=== PATIENT | male | born 1995 | race Caucasian/White ===

== ENCOUNTER 2017-12-23 09:07 | Inpatient (IN) | payer OTHER ==
[2017-12-23 09:28] VITALS: BMI 21.4
--- NOTE | 2017-12-23 09:55 | HP ---
COWS - Scale Resting Pulse: 0= [place] 80 or Below Sweatin= Chills/Flushing Restless Observation: 3= Extraneous Movement Pupil Size: 1= Pupils >than Normal Bone or Joint Aches: 2= Severe Diffuse Aches Runny Nose/ Eye Tearin= Nasal Congestion GI Upset > 30mins: 2= Nausea/Diarrhea Tremor Observation: 2= Slight Tremor Visible Yawning Observation: 1= 1-2x During Session Anxiety or Irritability: 2=Irritable/Anxious Goose Flesh Skin: 0=Smooth Skin COWS Score: 15 CIWA Score - CIWA Score Nausea/Vomitin Muscle Tremors: 2 Anxiety: 2 Agitation: 2 Paroxysmal Sweats: 1-Minimal Palms Moist Orientation: 0-Oriented Tacttile Disturbances: 1-Very Mild Itch/Numbness Auditory Disturbances: 1-Very Mild Visual Disturbances: 0-None Headache: 2-Mild CIWA-Ar Total Score: 13 Admission ROS BHS - HPI Chief Complaint: i need help to stop using heroin and xanax,cocaine and marijuana Allergies/Adverse Reactions: Allergies Allergy/AdvReac Type Severity Reaction Status Date / Time No Known Allergies Allergy Verified 12/23/17 09:42 History of Present Illness: this 22 years old male with heroin and xanax,cocaine and marijuana dependence, seeking detox,withdrawal symptom,last treatment 11/11/17 to 11/16/17 [facility] multiple admissions in the past nicotine dependence weight loss longest period of sobriety 3 months seizure last 2017 withdrawal seizure Exam Limitations: No Limitations - Ebola screening Have you traveled outside of the country in the last 21 days: No (N) Have you had contact with anyone from an Ebola affected area: No Have you been sick,other than usual withdrawal symptoms: No Do you have a fever: No - Review of Systems Constitutional: Chills, Loss of Appetite, Malaise, Night Sweats, Changes in sleep, Weakness, Unintentional Wgt. Loss EENT: reports: Tearing, Nose Congestion Respiratory: reports: No Symptoms reported Cardiac: reports: No Symptoms Reported GI: reports: Diarrhea, Nausea, Vomiting, Abdominal cramping : reports: No Symptoms Reported Musculoskeletal: reports: Back Pain, Joint Pain, Muscle Pain, Other (left acl repair in 2011) Integumentary: reports: Dryness Neuro: reports: Headache, Tremors Endocrine: reports: No Symptoms Reported Hematology: reports: No Symptoms Reported Psychiatric: reports: No Sypmtoms Reported, Judgement Intact, Mood/Affect Appropiate, Orientated x3 Patient History - Patient Medical History Hx Anemia: No Hx Asthma: No Hx Cardiac Disorders: No Hx Hypertension: No Hx Hypercholesterolemia: No Hx Seizures: Yes (LAST IN 2017 DUE TO XANAX WITHDRAWAL SX) Hx Diabetes: No Hx Gastrointestinal Disorders: No Hx Genitourinary Disorders: No Hx Sexually Transmitted Disorders: No Hx Renal Disease (ESRD): No Hx Thyroid Disease: No Hx Human Immunodeficiency Virus (HIV): No (NEGATIVE HX) Hx Hepatitis C: No Hx Depression: No Hx Suicide Attempt: No (DENIES) Hx Bipolar Disorder: No Hx Schizophrenia: No - Patient Surgical History Past Surgical History: Yes Hx Neurologic Surgery: No Hx Cataract Extraction: No Hx Cardiac Surgery: No Hx Lung Surgery: No Hx Breast Surgery: No Hx Breast Biopsy: No Hx Abdominal Surgery: No Hx Orthopedic Surgery: Yes (LEFT ACL TEAR REPAIRED IN 2010) Anesthesia Reaction: No - PPD History Previous Implant?: Yes Documented Results: Negative w/proof Implanted On Prior [facility] Admission?: Yes Date: 11/13/17 Results: 0 mm PPD to be Administered?: No - Smoking Cessation Smoking history: Current every day smoker Have you smoked in the past 12 months: Yes Aproximately how many cigarettes per day: 10 Hx Chewing Tobacco Use: No Initiated information on smoking cessation: Yes 'Breaking Loose' booklet given: 12/23/17 - Substance & Tx. History Hx Alcohol Use: No Hx Substance Use: Yes Substance Use Type: Cocaine, Heroin, Marijuana, Tranquilizers - Substances Abused Heroin Route: Injection Frequency: Daily Amount used: 5-10 BAGS Age of first use: 19 Date of Last Use: 12/23/17 Alprazolam (Xanax) Route: Oral Frequency: Daily Amount used: 4-6MG DAILY Age of first use: 15 Date of Last Use: 12/20/17 Family Disease History - Family Disease History Family Disease History: Diabetes: Grandparent, Other: Father (DRUG ADDICTION) Admission Physical Exam BHS - Vital Signs Vital Signs: Vital Signs - 24 hr 12/23/17 09:26 Temperature 97 F L Pulse Rate 69 Respiratory 18 Rate Blood Pressure 109/65 - Physical General Appearance: Yes: Moderate Distress, Tremorous, Irritable, Sweating, Anxious HEENTM: Yes: Normal ENT Inspection, JOSE, Pharynx Normal Respiratory: Yes: Lungs Clear, Normal Breath Sounds, No Respiratory Distress Neck: Yes: Within Normal Limits, Supple, Trachea in good position Breast: Yes: Within Normal Limits Cardiology: Yes: Within Normal Limits, Regular Rhythm, Regular Rate, S1, S2 Abdominal: Yes: Within Normal Limits, Normal Bowel Sounds, Non Tender, Soft Genitourinary: Yes: Within Normal Limits Back: Yes: Within Normal Limits, Normal Inspection, Muscle Spasm Musculoskeletal: Yes: Back pain, Joint Stiffness, Muscle Pain, Other (scar lef knee,post acl repair) Extremities: Yes: Tremors Neurological: Yes: 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 NML intact, Fully Oriented, Alert, Motor Strength 5/5 Integumentary: Yes: Dry Lymphatic: Yes: Within Normal Limits - Diagnostic (1) Opioid dependence with withdrawal Current Visit: Yes Status: Acute (2) Sedative, hypnotic or anxiolytic dependence with withdrawal, uncomplicated Current Visit: Yes Status: Acute (3) Cannabis dependence, uncomplicated Current Visit: No Status: Acute (4) Cocaine dependence, uncomplicated Current Visit: Yes Status: Acute (5) IVDU (intravenous drug user) Current Visit: Yes Status: Acute (6) Drug withdrawal seizure Current Visit: No Status: Chronic Qualifiers: Complication of substance-induced condition: with unspecified complication Qualified Code(s): F19.239 - Other psychoactive substance dependence with withdrawal, unspecified; R56.9 - Unspecified convulsions (7) Weight loss Current Visit: Yes Status: Acute (8) Nicotine dependence Current Visit: Yes Status: Acute Qualifiers: Nicotine product type: cigarettes Cleared for Admission [facility] - Detox or Rehab [facility] Level of Care: Medically Managed Detox Regimen/Protocol: Methadone [facility] Breath Alcohol Content Breath Alcohol Content: 0 Urine Drug Screen - Results Drug Screen Negative: No Urine Drug Screen Results: THC-Marijuana, STACEY-Cocaine, OPI-Opiates, FEN-Fentanyl
[2017-12-23] MEDS ORDERED: MAG HYDROX/AL HYDROX/SIMETH 30 ML UNIT-DOSE CUP PO PRN (10:04)
[2017-12-23] MEDS ORDERED: MENTHOL/PHENOL 1 EACH UD MM PRN (10:04)
[2017-12-23] MEDS ORDERED: MAGNESIUM CITRATE 300 ML BOTTLE PO PRN (10:04)
[2017-12-23] MEDS ORDERED: P-EPHED 60MG/TRIPROLIDI 2.5MG TABLET PO PRN (10:04)
[2017-12-23] MEDS ORDERED: IBUPROFEN 400 MG TABLET (FP) PO PRN (10:04)
[2017-12-23] MEDS ORDERED: guaiFENesin/D-METHORPHAN HB 10 ML UNIT-DOSE CUPS PO PRN (10:04)
[2017-12-23] MEDS ORDERED: LOPERAMIDE HCL 2 MG CAPSULE PO PRN (10:04)
[2017-12-23] MEDS ORDERED: ACETAMINOPHEN 325 MG TABLET (FP) PO PRN (10:04)
[2017-12-23] MEDS ORDERED: MAGNESIUM HYDROX 2400MG/30ML ORAL SUSPENSION 30 ML CUP PO PRN (10:04)
[2017-12-23] MEDS ORDERED: hydrOXYzine PAMOATE 25 MG CAPSULE (FP) PO PRN (10:04)
[2017-12-23] MEDS ORDERED: METHADONE HCL 10 MG TABLET (FOR DETOX USE ONLY) PO ONE ×2 (10:15→23:00)
--- NOTE | 2017-12-23 11:15 | EKG ---
Test Reason : Blood Pressure : / mmHG Vent. Rate : 077 BPM Atrial Rate : 077 BPM P-R Int : 150 ms QRS Dur : 102 ms QT Int : 370 ms P-R-T Axes : -17 061 061 degrees QTc Int : 418 ms NORMAL SINUS RHYTHM NORMAL ECG WHEN COMPARED WITH ECG OF 11-NOV-2017 19:17, VENT. RATE HAS INCREASED BY 31 BPM Confirmed by GISELE DOSS MD ([id number]) on 12/23/2017 11:15:15 AM Referred By: Confirmed By:GISELE DOSS MD
[2017-12-23] MEDS: diazePAM 5 MG TABLET PO PRN ×3 (11:46→22:21)
[2017-12-23] MEDS: NICOTINE 21 MG/24 HOURS TOPICAL PATCH TD SCH (11:47)
[2017-12-23 14:52] LABS: URINE APPEARANCE CLEAR; URINE BILIRUBIN NEGATIVE (<2.0 mg/dL); URINE COLOR YELLOW; URINE GLUCOSE (UA) NEGATIVE (NEGATIVE); URINE KETONE NEGATIVE (NEGATIVE); URINE LEUK ESTERASE NEGATIVE (NEGATIVE); URINE NITRITE NEGATIVE (NEGATIVE); URINE PROTEIN NEGATIVE (NEGATIVE)
[2017-12-23] MEDS ORDERED: MELATONIN 5 MG TABLETS PO PRN (22:00)
[2017-12-23] MEDS: THIAMINE HCL 100 MG TABLET (FP) PO SCH (22:18)
[2017-12-23] MEDS: cloNIDine HCL 0.1 MG TABLET PO SCH (22:19)
--- NOTE | 2017-12-24 09:41 | PN ---
S CIWA - CIWA Score Nausea/Vomitin-No Nausea/No Vomiting Muscle Tremors: 2 Anxiety: 3 Agitation: 3 Paroxysmal Sweats: 3 Orientation: 0-Oriented Tacttile Disturbances: 0-None Auditory Disturbances: 0-None Visual Disturbances: 1-Very Mild Sensitivity Headache: 0-None Present CIWA-Ar Total Score: 12 BHS COWS - Scale Resting Pulse: 0= [place] 80 or Below Sweatin=Flushed/Facial Moisture Restless Observation: 1= Difficult to Sit Still Pupil Size: 1= Pupils >than Normal Bone or Joint Aches: 1= Mild Discomfort Runny Nose/ Eye Tearin= Runny Nose/Eyes GI Upset > 30mins: 0= None Tremor Observation of Outstretched Hands: 1= Tremor [place], Not Seen Yawning Observation: 2= >3x During Session Anxiety or Irritability: 2=Irritable/Anxious Goose Flesh Skin: 0=Smooth Skin COWS Score: 12 S Progress Note (SOAP) Subjective: anxious, body aches, chills and sweats Objective: 12/24/17 09:39 Vital Signs Temperature 97.7 F 12/24/17 09:06 Pulse Rate 59 L 12/24/17 09:06 Respiratory Rate 16 12/24/17 09:06 Blood Pressure 145/78 12/24/17 09:06 O2 Sat by Pulse Oximetry (%) Laboratory Last Values Urine Color Yellow 12/23/17 12:15 Urine Appearance Clear 12/23/17 12:15 Urine pH 5.0 (5.0-8.0) 12/23/17 12:15 Ur Specific [place] 1.024 (1.001-1.035) 12/23/17 12:15 Urine Protein Negative (NEGATIVE) 12/23/17 12:15 Urine Glucose (UA) Negative (NEGATIVE) 12/23/17 12:15 Urine Ketones Negative (NEGATIVE) 12/23/17 12:15 Urine Blood Negative (NEGATIVE) 12/23/17 12:15 Urine Nitrite Negative (NEGATIVE) 12/23/17 12:15 Urine Bilirubin Negative (<2.0 mg/dL) 12/23/17 12:15 Urine Urobilinogen 2.0 mg/dL (0.2-1.0) 12/23/17 12:15 Ur Leukocyte Esterase Negative (NEGATIVE) 12/23/17 12:15 additional labs pending Assessment: 12/24/17 09:41 Aox3 no distress no adventitious breath sounds full ROM ambulating in the unit withdrawal sx Plan: increase PO fluids continue detox continue to monitor
[2017-12-24] MEDS ORDERED: METHADONE HCL 10 MG TABLET (FOR DETOX USE ONLY) PO ONE (10:00)
[2017-12-24] MEDS: cloNIDine HCL 0.1 MG TABLET PO SCH ×2 (10:14→22:05)
[2017-12-24] MEDS: diazePAM 5 MG TABLET PO PRN ×4 (10:15→23:01)
[2017-12-24] MEDS: PRENATAL VITAMINS W/ FOLIC ACID TABLET (FP) PO SCH (10:15)
[2017-12-24] MEDS: NICOTINE 21 MG/24 HOURS TOPICAL PATCH TD SCH (10:15)
[2017-12-24 11:28] LABS: HEMATOCRIT 40.3 % (35.4-49); HEMOGLOBIN 13.3 GM/dL (11.7-16.9); MCH 28.7 pg (25.7-33.7); MEAN CELL VOLUME 86.9 fl (80-96); MEAN PLT VOLUME 8.9 fl (7.5-11.1); PLATELET COUNT 174 K/MM3 (134-434); RBC 4.63 M/mm3 (4.00-5.60); RDW 14.3 % (11.9-15.9); WHITE BLOOD COUNT 7.1 K/mm3 (4.0-10.0)
[2017-12-24 11:41] LABS: ALBUMIN 3.4 g/dl (3.4-5.0); ALK PHOS 73 U/L (45-117); ANION GAP 4 MMOL/L (8-16); BILIRUBIN,TOTAL 0.3 mg/dL (0.2-1); BLOOD UREA NITROGEN 12 mg/dL (7-18); CALCIUM 9.2 mg/dL (8.5-10.1); CHLORIDE 104 mmol/L (98-107); CO2 30 mmol/L (21-32); CREATININE 1.1 mg/dL (0.55-1.3); GLUCOSE,RANDOM 87 mg/dL (74-106); POTASSIUM 4.4 mmol/L (3.5-5.1); SGOT/AST 17 U/L (15-37); SGPT/ALT 24 U/L (13-61); SODIUM 138 mmol/L (136-145)
[2017-12-24] MEDS: THIAMINE HCL 100 MG TABLET (FP) PO SCH (22:05)
[2017-12-24] MEDS: CYCLOBENZAPRINE HCL 10 MG TABLET (FP) PO PRN (22:05)
[2017-12-25] MEDS: CYCLOBENZAPRINE HCL 10 MG TABLET (FP) PO PRN (09:21)
[2017-12-25] MEDS: diazePAM 5 MG TABLET PO PRN ×2 (09:21→13:06)
[2017-12-25] MEDS ORDERED: METHADONE HCL 5 MG TABLET (FOR DETOX USE ONLY) PO ONE (10:00)
[2017-12-25] MEDS: NICOTINE 21 MG/24 HOURS TOPICAL PATCH TD SCH (10:09)
[2017-12-25] MEDS: PRENATAL VITAMINS W/ FOLIC ACID TABLET (FP) PO SCH (10:09)
[2017-12-25] MEDS: cloNIDine HCL 0.1 MG TABLET PO SCH (10:09)
[2017-12-25 14:09] VITALS: BP 106/66; PULSE 94; TEMP 98.1
--- NOTE | 2017-12-25 17:11 | PN ---
[facility] CIWA - CIWA Score Nausea/Vomitin-Mild Nausea/No Vomiting Muscle Tremors: 3 Anxiety: 3 Agitation: 3 Paroxysmal Sweats: 1-Minimal Palms Moist Orientation: 0-Oriented Tacttile Disturbances: 0-None Auditory Disturbances: 0-None Visual Disturbances: 0-None Headache: 0-None Present CIWA-Ar Total Score: 11 S COWS - Scale Resting Pulse: 0= [place] 80 or Below Sweatin= Chills/Flushing Restless Observation: 1= Difficult to Sit Still Pupil Size: 0= Normal to Room Light Bone or Joint Aches: 2= Severe Diffuse Aches Runny Nose/ Eye Tearin= Nasal Congestion GI Upset > 30mins: 2= Nausea/Diarrhea Tremor Observation of Outstretched Hands: 1= Tremor [place], Not Seen Yawning Observation: 1= 1-2x During Session Anxiety or Irritability: 2=Irritable/Anxious Goose Flesh Skin: 0=Smooth Skin COWS Score: 11 [facility] Progress Note (SOAP) Subjective: body aches trouble sleep at night tremor gi distress Objective: 12/25/17 17:10 Vital Signs Temperature 98.1 F 12/25/17 14:09 Pulse Rate 94 H 12/25/17 14:09 Respiratory Rate 18 12/25/17 14:09 Blood Pressure 106/66 12/25/17 14:09 O2 Sat by Pulse Oximetry (%) Laboratory Last Values WBC 7.1 K/mm3 (4.0-10.0) 12/24/17 07:40 RBC 4.63 M/mm3 (4.00-5.60) 12/24/17 07:40 Hgb 13.3 GM/dL (11.7-16.9) 12/24/17 07:40 Hct 40.3 % (35.4-49) 12/24/17 07:40 MCV 86.9 fl (80-96) 12/24/17 07:40 MCH 28.7 pg (25.7-33.7) 12/24/17 07:40 MCHC 33.0 g/dl (32.0-35.9) 12/24/17 07:40 RDW 14.3 % (11.9-15.9) 12/24/17 07:40 Plt Count 174 K/MM3 (134-434) 12/24/17 07:40 MPV 8.9 fl (7.5-11.1) 12/24/17 07:40 Sodium 138 mmol/L (136-145) 12/24/17 07:40 Potassium 4.4 mmol/L (3.5-5.1) 12/24/17 07:40 Chloride 104 mmol/L (98-107) 12/24/17 07:40 Carbon Dioxide 30 mmol/L (21-32) 12/24/17 07:40 Anion Gap 4 MMOL/L (8-16) L 12/24/17 07:40 BUN 12 mg/dL (7-18) 12/24/17 07:40 Creatinine 1.1 mg/dL (0.55-1.3) 12/24/17 07:40 Creat Clearance w eGFR > 60 (>60) 12/24/17 07:40 Random Glucose 87 mg/dL (74-106) 12/24/17 07:40 Calcium 9.2 mg/dL (8.5-10.1) 12/24/17 07:40 Total Bilirubin 0.3 mg/dL (0.2-1) 12/24/17 07:40 AST 17 U/L (15-37) 12/24/17 07:40 ALT 24 U/L (13-61) 12/24/17 07:40 Alkaline Phosphatase 73 U/L (45-117) 12/24/17 07:40 Total Protein 7.0 g/dl (6.4-8.2) 12/24/17 07:40 Albumin 3.4 g/dl (3.4-5.0) 12/24/17 07:40 Urine Color Yellow 12/23/17 12:15 Urine Appearance Clear 12/23/17 12:15 Urine pH 5.0 (5.0-8.0) 12/23/17 12:15 Ur Specific [place] 1.024 (1.001-1.035) 12/23/17 12:15 Urine Protein Negative (NEGATIVE) 12/23/17 12:15 Urine Glucose (UA) Negative (NEGATIVE) 12/23/17 12:15 Urine Ketones Negative (NEGATIVE) 12/23/17 12:15 Urine Blood Negative (NEGATIVE) 12/23/17 12:15 Urine Nitrite Negative (NEGATIVE) 12/23/17 12:15 Urine Bilirubin Negative (<2.0 mg/dL) 12/23/17 12:15 Urine Urobilinogen 2.0 mg/dL (0.2-1.0) 12/23/17 12:15 Ur Leukocyte Esterase Negative (NEGATIVE) 12/23/17 12:15 RPR Titer Nonreactive (NONREACTIVE) 12/24/17 07:40 lab noted Assessment: 12/25/17 17:10 withdrawal sx Plan: continue detox
--- NOTE | 2017-12-25 17:48 | PN ---
Kaushik Progress Note Note: patient did not want to complete treatment,singed release ama,all attempts to convince patient to stay with no avail,signed release ama,risks of withdrawal and relapsing explained,advise to go to er if any problem
--- NOTE | 2017-12-25 17:50 | DS ---
[facility] Detox Discharge Summary Admission Date: 12/23/17 Discharge Date: 12/25/17 - History Present History: Cannabis Dependence, Cocaine Dependence, Opioid Dependence, Sedative Dependence Additional Comments: patient left ama - Physical Exam Results Vital Signs: Vital Signs Temperature 98.1 F 12/25/17 14:09 Pulse Rate 94 H 12/25/17 14:09 Respiratory Rate 18 12/25/17 14:09 Blood Pressure 106/66 12/25/17 14:09 O2 Sat by Pulse Oximetry (%) Pertinent Admission Physical Exam Findings: withdrawal signs and symptom Laboratory Last Values WBC 7.1 K/mm3 (4.0-10.0) 12/24/17 07:40 RBC 4.63 M/mm3 (4.00-5.60) 12/24/17 07:40 Hgb 13.3 GM/dL (11.7-16.9) 12/24/17 07:40 Hct 40.3 % (35.4-49) 12/24/17 07:40 MCV 86.9 fl (80-96) 12/24/17 07:40 MCH 28.7 pg (25.7-33.7) 12/24/17 07:40 MCHC 33.0 g/dl (32.0-35.9) 12/24/17 07:40 RDW 14.3 % (11.9-15.9) 12/24/17 07:40 Plt Count 174 K/MM3 (134-434) 12/24/17 07:40 MPV 8.9 fl (7.5-11.1) 12/24/17 07:40 Sodium 138 mmol/L (136-145) 12/24/17 07:40 Potassium 4.4 mmol/L (3.5-5.1) 12/24/17 07:40 Chloride 104 mmol/L (98-107) 12/24/17 07:40 Carbon Dioxide 30 mmol/L (21-32) 12/24/17 07:40 Anion Gap 4 MMOL/L (8-16) L 12/24/17 07:40 BUN 12 mg/dL (7-18) 12/24/17 07:40 Creatinine 1.1 mg/dL (0.55-1.3) 12/24/17 07:40 Creat Clearance w eGFR > 60 (>60) 12/24/17 07:40 Random Glucose 87 mg/dL (74-106) 12/24/17 07:40 Calcium 9.2 mg/dL (8.5-10.1) 12/24/17 07:40 Total Bilirubin 0.3 mg/dL (0.2-1) 12/24/17 07:40 AST 17 U/L (15-37) 12/24/17 07:40 ALT 24 U/L (13-61) 12/24/17 07:40 Alkaline Phosphatase 73 U/L (45-117) 12/24/17 07:40 Total Protein 7.0 g/dl (6.4-8.2) 12/24/17 07:40 Albumin 3.4 g/dl (3.4-5.0) 12/24/17 07:40 Urine Color Yellow 12/23/17 12:15 Urine Appearance Clear 12/23/17 12:15 Urine pH 5.0 (5.0-8.0) 12/23/17 12:15 Ur Specific [place] 1.024 (1.001-1.035) 12/23/17 12:15 Urine Protein Negative (NEGATIVE) 12/23/17 12:15 Urine Glucose (UA) Negative (NEGATIVE) 12/23/17 12:15 Urine Ketones Negative (NEGATIVE) 12/23/17 12:15 Urine Blood Negative (NEGATIVE) 12/23/17 12:15 Urine Nitrite Negative (NEGATIVE) 12/23/17 12:15 Urine Bilirubin Negative (<2.0 mg/dL) 12/23/17 12:15 Urine Urobilinogen 2.0 mg/dL (0.2-1.0) 12/23/17 12:15 Ur Leukocyte Esterase Negative (NEGATIVE) 12/23/17 12:15 RPR Titer Nonreactive (NONREACTIVE) 12/24/17 07:40 - Medication Discharge Medications: Ambulatory Orders NK [No Known Home Medication] 11/11/17 - Diagnosis (1) Opioid dependence with withdrawal Current Visit: Yes Status: Acute (2) Sedative, hypnotic or anxiolytic dependence with withdrawal, uncomplicated Current Visit: Yes Status: Acute (3) Cannabis dependence, uncomplicated Current Visit: No Status: Acute (4) Cocaine dependence, uncomplicated Current Visit: Yes Status: Acute (5) IVDU (intravenous drug user) Current Visit: Yes Status: Acute (6) Drug withdrawal seizure Current Visit: No Status: Chronic Qualifiers: Complication of substance-induced condition: with unspecified complication Qualified Code(s): F19.239 - Other psychoactive substance dependence with withdrawal, unspecified; R56.9 - Unspecified convulsions (7) Weight loss Current Visit: Yes Status: Acute (8) Nicotine dependence Current Visit: Yes Status: Acute Qualifiers: Nicotine product type: cigarettes - AMA Did Patient Leave Against Medical Advice: Yes
[2017-12-26] MEDS ORDERED: METHADONE HCL 5 MG TABLET (FOR DETOX USE ONLY) PO ONE (10:00)
[2017-12-27] MEDS ORDERED: METHADONE HCL 10 MG TABLET (FOR DETOX USE ONLY) PO ONE (10:00)
[2017-12-28] MEDS ORDERED: METHADONE HCL 5 MG TABLET (FOR DETOX USE ONLY) PO ONE (06:00)
== END 2017-12-25 18:00 | disposition left against medical advice (07) | DRG 770 ==
LOC: YASAS 09:07 → Y6N 10:11
PROC: HZ2ZZZZ Detoxification Services for Substance Abuse Treatment (ICD-10-PCS; principal; 2017-12-23)
DX: F11.23 Opioid dependence with withdrawal (principal); F13.230 Sedative, hypnotic or anxiolytic dependence with withdrawal, uncomplicated; F14.20 Cocaine dependence, uncomplicated; F12.20 Cannabis dependence, uncomplicated; F17.210 Nicotine dependence, cigarettes, uncomplicated; R63.4 Abnormal weight loss; Z68.21 Body mass index [BMI] 21.0-21.9, adult; Z86.69 Personal history of other diseases of the nervous system and sense organs
CPT/HCPCS: 36415; 80053; 81003; 85027; 86593; 93005; 93010; J0735

== ENCOUNTER 2018-11-02 16:10 | Inpatient (IN) | payer OTHER ==
[2018-11-02 18:56] VITALS: BMI 21.1
--- NOTE | 2018-11-02 20:13 | HP ---
COWS - Scale Resting Pulse: 0= [place] 80 or Below Sweatin= Chills/Flushing Restless Observation: 1= Difficult to Sit Still Pupil Size: 0= Normal to Room Light Bone or Joint Aches: 1= Mild Discomfort Runny Nose/ Eye Tearin= Runny Nose/Eyes GI Upset > 30mins: 2= Nausea/Diarrhea Tremor Observation: 2= Slight Tremor Visible Yawning Observation: 2= >3x During Session Anxiety or Irritability: 1=Feels Anxious/Irritable Goose Flesh Skin: 3=Piloerection COWS Score: 15 CIWA Score - Admission Criteria [facility] Guidelines: Admission for Medically Managed Detox: Requires at least one of the followin. CIWA greater than 12 2. Seizures within the past 24 hours 3. Delirium tremens within the past 24 hours 4. Hallucinations within the past 24 hours 5. Acute intervention needed for co occurring medical disorder 6. Acute intervention needed for co occurring psychiatric disorder 7. Severe withdrawal that cannot be handled at a lower level of care (continued vomiting, continued diarrhea, abnormal vital signs) requiring intravenous medication and/or fluids 8. Admission ROS [facility] Chief Complaint: opioid withdrawal sx Allergies/Adverse Reactions: Allergies Allergy/AdvReac Type Severity Reaction Status Date / Time No Known Allergies Allergy Verified 11/02/18 18:45 History of Present Illness: Patient is 23 nyo old male with hx of heroin dependence intranasal and occasional intravenous use, with last IV use this morning, is here seeking detox , last detox [facility] November 2018. Longest period of sobriety 3 months, reports overdose x 5 with last episode March 2018. Denies medical or psychiatric hx. Denies SI/HI. Exam Limitations: No Limitations - Ebola screening Have you traveled outside of the country in the last 21 days: No (N) Have you had contact with anyone from an Ebola affected area: No Do you have a fever: No - Review of Systems Constitutional: Chills, Loss of Appetite, Unintentional Wgt. Loss EENT: reports: Nose Congestion Respiratory: reports: No Symptoms reported Cardiac: reports: No Symptoms Reported GI: reports: Nausea, Poor Appetite, Poor Fluid Intake : reports: No Symptoms Reported Musculoskeletal: reports: Joint Pain Integumentary: reports: No Symptoms Reported Neuro: reports: No Symptoms reported Endocrine: reports: No Symptoms Reported Hematology: reports: No Symptoms Reported Psychiatric: reports: Orientated x3, Anxious Other Systems: Reviewed and Negative Patient History - Patient Medical History Hx Anemia: No Hx Asthma: No Hx Chronic Obstructive Pulmonary Disease (COPD): No Hx Cardiac Disorders: No Hx Hypertension: No Hx Hypercholesterolemia: No Hx Seizures: Yes (LAST IN 2016 DUE TO XANAX WITHDRAWAL SX) Hx Diabetes: No Hx Gastrointestinal Disorders: No Hx Genitourinary Disorders: No Hx Sexually Transmitted Disorders: No Hx Renal Disease (ESRD): No Hx Thyroid Disease: No Hx Human Immunodeficiency Virus (HIV): No (NEGATIVE HX) Hx Hepatitis C: No Hx Depression: No Hx Suicide Attempt: No (DENIES) Hx Bipolar Disorder: No Hx Schizophrenia: No - Patient Surgical History Past Surgical History: Yes Hx Neurologic Surgery: No Hx Cataract Extraction: No Hx Cardiac Surgery: No Hx Lung Surgery: No Hx Breast Surgery: No Hx Breast Biopsy: No Hx Abdominal Surgery: No Hx Appendectomy: No Hx Cholecystectomy: No Hx Genitourinary Surgery: No Hx Section: No Hx Orthopedic Surgery: Yes (LEFT ACL TEAR REPAIRED IN 2010) Anesthesia Reaction: No - PPD History Documented Results: Negative w/proof Date: 11/13/17 Results: 0 mm PPD to be Administered?: Yes - Smoking Cessation Smoking history: Current every day smoker Have you smoked in the past 12 months: Yes Aproximately how many cigarettes per day: 10 Hx Chewing Tobacco Use: No Initiated information on smoking cessation: Yes 'Breaking Loose' booklet given: 11/02/18 - Substance & Tx. History Hx Alcohol Use: No Hx Substance Use: Yes Substance Use Type: Heroin, Opiates, Tranquilizers Hx Substance Use Treatment: Yes ([facility] November 2017) - Substances abused Alprazolam (Xanax) Substance route: Oral Frequency: Daily Amount used: 6 mg Age of first use: 19 Date of last use: 10/29/18 Heroin Substance route: Inhalation Frequency: Daily Amount used: 1 - 2 bundles Age of first use: 20 Date of last use: 11/02/18 Family Disease History - Family Disease History Family Disease History: Diabetes: Grandparent, Other: Father (DRUG ADDICTION) Admission Physical Exam BHS - Vital Signs Vital Signs: Vital Signs - 24 hr 11/02/18 18:45 Temperature 98.0 F Pulse Rate 62 Respiratory 16 Rate Blood Pressure 141/81 - Physical General Appearance: Yes: Appropriately Dressed, Mild Distress, Thin, Tremorous, Sweating HEENTM: Yes: EOMI, Hearing grossly Normal, Normal ENT Inspection, Normocephalic , Normal Voice, JOSE, Pharynx Normal, Tm's normal, Nasal Congestion Respiratory: Yes: Chest Non-Tender, Lungs Clear, Normal Breath Sounds, No Respiratory Distress, No Accessory Muscle Use Neck: Yes: Within Normal Limits Breast: Yes: Breast Exam Deferred Cardiology: Yes: Regular Rhythm, Regular Rate Abdominal: Yes: Normal Bowel Sounds, Non Tender, Flat, Soft Genitourinary: Yes: Within Normal Limits Back: Yes: Normal Inspection Musculoskeletal: Yes: full range of Motion, Gait Steady, Pelvis Stable, Back pain Extremities: Yes: Normal Capillary Refill, Normal Inspection, Normal Range of Motion, Non-Tender 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 intact, Fully Oriented, Alert, Motor Strength 5/5, Normal Response, Depressed Affect Integumentary: Yes: Normal Color, Warm, Diaphoresis Lymphatic: Yes: Within Normal Limits - Diagnostic (1) Nicotine dependence Current Visit: Yes Status: Acute Qualifiers: Nicotine product type: cigarettes (2) Opioid dependence with withdrawal Current Visit: Yes Status: Acute (3) Weight loss Current Visit: Yes Status: Acute Cleared for Admission S - Detox or Rehab [facility] Level of Care: Medically Managed Detox Regimen/Protocol: Methadone Breathalyzer - Breathalyzer Breathalyzer: 0 Urine Drug Screen - Test Device Lot number: [id number] Expiration date: 07/25/18 - Control Is test valid?: Yes - Results Drug screen NEGATIVE: No Urine drug screen results: THC-Marijuana, FEN-Fentanyl Inpatient Rehab Admission - Rehab Decision to Admit Inpatient rehab admission?: No - Initial Determination Are CD services needed?: No Free of communicable disease: No Not in need of hospitalization: No - Rehab Admission Criteria Previous failed treatment: No Poor recovery environment: No Comorbidities: No Lacks judgement: No Patient is meeting Inpatient Rehab admission criteria:: No
[2018-11-02] MEDS ORDERED: BISMUTH SUBSALICYLATE 524 MG/30 ML UD PO PRN (20:14)
[2018-11-02] MEDS ORDERED: cloNIDine HCL 0.1 MG TABLET PO PRN (20:14)
[2018-11-02] MEDS ORDERED: METHOCARBAMOL 500 MG TABLET PO PRN (20:14)
[2018-11-02] MEDS ORDERED: ACETAMINOPHEN 325 MG TABLET (FP) PO PRN ×2 (20:14)
[2018-11-02] MEDS ORDERED: MAGNESIUM HYDROX 2400MG/30ML ORAL SUSPENSION 30 ML CUP PO PRN (20:14)
[2018-11-02] MEDS ORDERED: METHADONE HCL 10 MG TABLET (FOR DETOX USE ONLY) PO ONE (20:14)
[2018-11-02] MEDS ORDERED: NICOTINE POLACRILEX 2 MG GUM BUC PRN (20:14)
[2018-11-02] MEDS ORDERED: IBUPROFEN 400 MG TABLET (FP) PO PRN (20:14)
[2018-11-02] MEDS ORDERED: MAGNESIUM CITRATE 300 ML BOTTLE PO PRN (20:14)
[2018-11-02] MEDS ORDERED: MENTHOL/PHENOL 1 EACH UD MM PRN (20:14)
[2018-11-02] MEDS ORDERED: MAG HYDROX/AL HYDROX/SIMETH 30 ML UNIT-DOSE CUP PO PRN (20:14)
[2018-11-02] MEDS ORDERED: METHADONE HCL 5 MG TABLET (FOR DETOX USE ONLY) PO ONE (20:46)
[2018-11-02] MEDS: THIAMINE HCL 100 MG TABLET (FP) PO SCH (21:41)
[2018-11-02] MEDS: diazePAM 5 MG TABLET PO PRN (21:41)
[2018-11-02] MEDS ORDERED: MELATONIN 5 MG TABLETS PO PRN (22:00)
[2018-11-03] MEDS ORDERED: METHADONE HCL 5 MG TABLET (FOR DETOX USE ONLY) ONE (08:45)
[2018-11-03] MEDS ORDERED: METHADONE HCL 10 MG TABLET (FOR DETOX USE ONLY) ONE (08:46)
[2018-11-03] MEDS: NICOTINE 14 MG/24 HOURS TOPICAL PATCH TD SCH (09:56)
[2018-11-03] MEDS: PRENATAL VITAMINS W/ FOLIC ACID TABLET (FP) PO SCH (09:56)
[2018-11-03] MEDS ORDERED: METHADONE (DETOX) 20 MG, METHADONE (DETOX) 5 MG PO ONE (10:00)
[2018-11-03] MEDS: diazePAM 5 MG TABLET PO PRN ×2 (10:00→15:45)
[2018-11-03 10:54] LABS: HEMATOCRIT 44.3 % (35.4-49); HEMOGLOBIN 15.1 GM/dL (11.7-16.9); MCH 30.7 pg (25.7-33.7); MEAN CELL VOLUME 90.3 fl (80-96); MEAN PLT VOLUME 10.9 fl (7.5-11.1); PLATELET COUNT 212 K/MM3 (134-434); RBC 4.91 M/mm3 (4.00-5.60); RDW 13.7 % (11.9-15.9); WHITE BLOOD COUNT 6.5 K/mm3 (4.0-10.0)
[2018-11-03 10:59] LABS: BILIRUBIN,TOTAL 0.4 mg/dL (0.2-1); CALCIUM 9.5 mg/dL (8.5-10.1); CREATININE 1.1 mg/dL (0.55-1.3); POTASSIUM 5.2 mmol/L (3.5-5.1); TOT PROT 7.3 g/dl (6.4-8.2)
--- NOTE | 2018-11-03 11:04 | PN ---
S CIWA - CIWA Score Nausea/Vomitin-No Nausea/No Vomiting Muscle Tremors: 3 Anxiety: 2 Agitation: 3 Paroxysmal Sweats: 2 Orientation: 0-Oriented Tacttile Disturbances: 0-None Auditory Disturbances: 0-None Visual Disturbances: 0-None Headache: 0-None Present CIWA-Ar Total Score: 10 S Progress Note (SOAP) Subjective: shakes sweats interrupted sleep body aches anxiety irritable Objective: 11/03/18 11:02 Vital Signs Temperature 98.8 F 11/03/18 10:06 Pulse Rate 52 L 11/03/18 10:06 Respiratory Rate 18 11/03/18 10:06 Blood Pressure 147/97 11/03/18 10:06 O2 Sat by Pulse Oximetry (%) Laboratory Tests 11/03/18 11/03/18 07:00 07:00 WBC 6.5 RBC 4.91 Hgb 15.1 Hct 44.3 MCV 90.3 MCH 30.7 MCHC 34.0 RDW 13.7 Plt Count 212 D MPV 10.9 D Sodium 141 Potassium 5.2 H Chloride 105 Carbon Dioxide 32 Anion Gap 3 L BUN 9.0 Creatinine 1.1 Est GFR (CKD-EPI)AfAm 108.32 Est GFR (CKD-EPI)NonAf 93.46 Random Glucose 90 Calcium 9.5 Total Bilirubin 0.4 AST 12 L ALT 15 Alkaline Phosphatase 70 Total Protein 7.3 Albumin 4.0 labs noted elevated potassium 5.2.. order repeat labs [id number] ambulating no acute distress Assessment: 11/03/18 11:03 withdrawal sx Plan: continue detox increase fluids repeat labs
--- NOTE | 2018-11-03 13:46 | EKG ---
Test Reason : Blood Pressure : / mmHG Vent. Rate : 044 BPM Atrial Rate : 044 BPM P-R Int : 162 ms QRS Dur : 088 ms QT Int : 426 ms P-R-T Axes : 054 049 056 degrees QTc Int : 364 ms MARKED SINUS BRADYCARDIA WHEN COMPARED WITH ECG OF 23-DEC-2017 10:29, VENT. RATE HAS DECREASED BY 33 BPM QT HAS SHORTENED Confirmed by XAVIER HINOJSOA MD ([id number]) on 11/03/2018 1:45:53 PM Referred By: Afshin Bautista Confirmed By:XAVIER HINOJOSA MD
[2018-11-03] MEDS: THIAMINE HCL 100 MG TABLET (FP) PO SCH (22:17)
[2018-11-04 06:47] VITALS: TEMP 97.2
[2018-11-04 09:31] VITALS: BP 118/60; PULSE 101
[2018-11-04] MEDS ORDERED: METHADONE HCL 10 MG TABLET (FOR DETOX USE ONLY) PO ONE (10:00)
[2018-11-04] MEDS: PRENATAL VITAMINS W/ FOLIC ACID TABLET (FP) PO SCH (10:30)
[2018-11-04] MEDS: NICOTINE 14 MG/24 HOURS TOPICAL PATCH TD SCH (10:30)
[2018-11-04] MEDS: diazePAM 5 MG TABLET PO PRN (10:33)
--- NOTE | 2018-11-04 12:54 | PN ---
[facility] Progress Note Note: pt arrived in withdrawals, pt c/o of withdrawals symptoms and aggressive symptomatic management attempted however pt in spite of extensive motivational chiseling regarding the risk of relapse, seizures, OD and or loss, pt chose to sign out AMA.
--- NOTE | 2018-11-04 13:49 | DS ---
[facility] Detox Discharge Summary Admission Date: 11/02/18 - History Present History: Alcohol Dependence, Opioid Dependence - Physical Exam Results Vital Signs: Vital Signs Temperature 97.2 F L 11/04/18 06:00 Pulse Rate 101 H 11/04/18 09:31 Respiratory Rate 18 11/04/18 09:31 Blood Pressure 118/60 11/04/18 09:31 O2 Sat by Pulse Oximetry (%) Pertinent Admission Physical Exam Findings: pt arrived in withdrawa Laboratory Tests 11/03/18 11/03/18 11/03/18 07:00 07:00 07:00 WBC 6.5 RBC 4.91 Hgb 15.1 Hct 44.3 MCV 90.3 MCH 30.7 MCHC 34.0 RDW 13.7 Plt Count 212 D MPV 10.9 D Sodium 141 Potassium 5.2 H Chloride 105 Carbon Dioxide 32 Anion Gap 3 L BUN 9.0 Creatinine 1.1 Est GFR (CKD-EPI)AfAm 108.32 Est GFR (CKD-EPI)NonAf 93.46 Random Glucose 90 Calcium 9.5 Total Bilirubin 0.4 AST 12 L ALT 15 Alkaline Phosphatase 70 Total Protein 7.3 Albumin 4.0 RPR Titer Nonreactive 11/04/18 08:00 WBC RBC Hgb Hct MCV MCH MCHC RDW Plt Count MPV Sodium Potassium 4.4 Chloride Carbon Dioxide Anion Gap BUN Creatinine Est GFR (CKD-EPI)AfAm Est GFR (CKD-EPI)NonAf Random Glucose Calcium Total Bilirubin AST ALT Alkaline Phosphatase Total Protein Albumin RPR Titer pt is restless, has not finished his detox and is insisting on leaving. Pt was advised of all the risk for leaving without completing his detox, pt understands pt signed AMA. - Treatment Hospital Course: Discharged Condition Good Patient has Accepted a Rehab Referral to: referral provided - Medication Discharge Medications: Ambulatory Orders NK [No Known Home Medication] 11/11/17 - Diagnosis (1) Alcohol abuse, episodic drinking behavior Status: Acute (2) Cannabis dependence, uncomplicated Status: Acute (3) Cocaine dependence, uncomplicated Status: Acute (4) IVDU (intravenous drug user) Status: Acute (5) Nicotine dependence Status: Acute Qualifiers: Nicotine product type: cigarettes (6) Opioid dependence with withdrawal Status: Acute (7) Sedative, hypnotic or anxiolytic dependence with withdrawal, uncomplicated Status: Acute (8) Weight loss Status: Acute (9) Drug withdrawal seizure Status: Chronic Qualifiers: Complication of substance-induced condition: with unspecified complication Qualified Code(s): F19.239 - Other psychoactive substance dependence with withdrawal, unspecified; R56.9 - Unspecified convulsions - AMA Did Patient Leave Against Medical Advice: Yes
[2018-11-05] MEDS ORDERED: METHADONE (DETOX) 10 MG, METHADONE (DETOX) 5 MG PO ONE (10:00)
[2018-11-06] MEDS ORDERED: METHADONE HCL 10 MG TABLET (FOR DETOX USE ONLY) PO ONE (10:00)
[2018-11-07] MEDS ORDERED: METHADONE HCL 5 MG TABLET (FOR DETOX USE ONLY) PO ONE (06:00)
== END 2018-11-04 13:13 | disposition left against medical advice (07) | DRG 770 ==
LOC: YASAS 16:10 → Y6N 21:03
PROVIDERS: ADMIT Surgery; ATTEND Surgery
PROC: HZ2ZZZZ Detoxification Services for Substance Abuse Treatment (ICD-10-PCS; principal; 2018-11-02)
DX: F11.23 Opioid dependence with withdrawal (principal); F13.230 Sedative, hypnotic or anxiolytic dependence with withdrawal, uncomplicated; F14.20 Cocaine dependence, uncomplicated; F12.20 Cannabis dependence, uncomplicated; F10.10 Alcohol abuse, uncomplicated; F17.210 Nicotine dependence, cigarettes, uncomplicated; R63.4 Abnormal weight loss; Z86.69 Personal history of other diseases of the nervous system and sense organs
CPT/HCPCS: 36415; 80053; 84132; 85027; 86480; 86593; 93005; 93010; J0735

== ENCOUNTER 2018-11-23 14:25 | Inpatient (IN) | payer OTHER ==
[2018-11-23 15:56] VITALS: BMI 22.6
--- NOTE | 2018-11-23 17:33 | HP ---
COWS - Scale Resting Pulse: 0= [place] 80 or Below Sweatin=Flushed/Facial Moisture Restless Observation: 3= Extraneous Movement Pupil Size: 0= Normal to Room Light Bone or Joint Aches: 1= Mild Discomfort Runny Nose/ Eye Tearin= None GI Upset > 30mins: 1= Stomach Cramp Tremor Observation: 4= Gross Tremor/Twitching Yawning Observation: 0= None Anxiety or Irritability: 2=Irritable/Anxious Goose Flesh Skin: 0=Smooth Skin COWS Score: 13 CIWA Score Nausea/Vomitin-No Nausea/No Vomiting Muscle Tremors: 5 Anxiety: 5 Agitation: 3 Paroxysmal Sweats: 1-Minimal Palms Moist Orientation: 0-Oriented Tacttile Disturbances: 3-Moderate Itch/Numb/Burn Auditory Disturbances: 0-None Visual Disturbances: 0-None Headache: 3-Moderate CIWA-Ar Total Score: 20 - Admission Criteria OASAS Guidelines: Admission for Medically Managed Detox: Requires at least one of the followin. CIWA greater than 12 2. Seizures within the past 24 hours 3. Delirium tremens within the past 24 hours 4. Hallucinations within the past 24 hours 5. Acute intervention needed for co occurring medical disorder 6. Acute intervention needed for co occurring psychiatric disorder 7. Severe withdrawal that cannot be handled at a lower level of care (continued vomiting, continued diarrhea, abnormal vital signs) requiring intravenous medication and/or fluids 8. Admission [facility] Chief Complaint: detox from benzo and heroin Allergies/Adverse Reactions: Allergies Allergy/AdvReac Type Severity Reaction Status Date / Time No Known Allergies Allergy Verified 11/23/18 15:49 History of Present Illness: 23M w/ pmh of CVA presenting for detox from benzo and heroin. Sniffs 1-2bundles heroin daily. Last usage ~0900, taking 1 bag. Started heroin since 19y/o. Had OD x5, last in Mar 2018. 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 Took prescribed percocet for torn ACL at 16y/o and took it recreationally. Xanax 6mg/daily. Last usage was Tuesday. Benzo withdrawal seizure x2 in 2016. Started xanax at 20y/o. Takes MJ QD. Social drinker. Smokes 10cig/daily. Jailed for 3mo in 2013. Has detox at [facility] in the past, received methadone but did not have a discharge plan. Has had suboxone detox from [facility] in [place]. Currently homeless x1mo. Lost 20lbs in x1mo. - Ebola screening Have you traveled outside of the country in the last 21 days: No (N) Have you had contact with anyone from an Ebola affected area: No Do you have a fever: No - Review of Systems Constitutional: Chills EENT: denies: Blurred Vision, Double Vision, Nose Congestion Respiratory: denies: Cough Cardiac: denies: Chest Pain, Lightheadedness, Palpitations GI: reports: Nausea. denies: Diarrhea, Difficulty Swallowing, Vomiting : denies: Burning, Frequency Musculoskeletal: denies: Back Pain, Joint Pain Integumentary: reports: Flushing Neuro: reports: Headache Patient History - Patient Medical History Hx Anemia: No Hx Asthma: No Hx Chronic Obstructive Pulmonary Disease (COPD): No Hx Cardiac Disorders: No Hx Hypertension: No Hx Hypercholesterolemia: No Hx Seizures: Yes (LAST IN 2016 DUE TO XANAX WITHDRAWAL SX) Hx Diabetes: No Hx Gastrointestinal Disorders: No Hx Genitourinary Disorders: No Hx Sexually Transmitted Disorders: No Hx Renal Disease (ESRD): No Hx Thyroid Disease: No Hx Human Immunodeficiency Virus (HIV): No (NEGATIVE HX) Hx Hepatitis C: No Hx Depression: No Hx Suicide Attempt: No (DENIES) Hx Bipolar Disorder: No Hx Schizophrenia: No - Patient Surgical History Past Surgical History: Yes Hx Neurologic Surgery: No Hx Cataract Extraction: No Hx Cardiac Surgery: No Hx Lung Surgery: No Hx Breast Surgery: No Hx Breast Biopsy: No Hx Abdominal Surgery: No Hx Appendectomy: No Hx Cholecystectomy: No Hx Genitourinary Surgery: No Hx Section: No Hx Orthopedic Surgery: Yes (LEFT ACL TEAR REPAIRED IN 2010) Anesthesia Reaction: No - PPD History Date: 11/13/17 Results: 0 mm - Smoking Cessation Smoking history: Current every day smoker Have you smoked in the past 12 months: Yes Aproximately how many cigarettes per day: 10 Hx Chewing Tobacco Use: No Initiated information on smoking cessation: No - Substances abused Alprazolam (Xanax) Substance route: Oral Frequency: Daily Amount used: 6 mg Age of first use: 19 Date of last use: 11/19/18 Heroin Substance route: Inhalation Frequency: Daily Amount used: 1 - 2 bundles Age of first use: 20 Date of last use: 11/23/18 Family Disease History - Family Disease History Family Disease History: Diabetes: Grandparent (Breast Ca in great grandmother), Other: Father (DRUG ADDICTION) Admission Physical Exam S - Vital Signs Vital Signs: Vital Signs - 24 hr 11/23/18 15:45 Temperature 98.1 F Pulse Rate 77 Respiratory 18 Rate Blood Pressure 114/52 L - Physical General Appearance: Yes: Thin, Tremorous, Irritable. No: Intoxicated HEENTM: Yes: Normal Voice. No: Pale Conjunctivae R, Pale Conjunctivae L, Scleral Ictenus R, Scleral Ictenus L, Pharyngeal Erythemia Respiratory: Yes: Lungs Clear, Normal Breath Sounds. No: Chest Non-Tender, No Accessory Muscle Use, Accessory Muscle Use, Stridor, Wheezing Cardiology: Yes: S1, S2. No: Tachycardia, Gallop/S3 Abdominal: Yes: Non Tender. No: Distended, Guarding, Tenderness Musculoskeletal: Yes: full range of Motion, Gait Steady Extremities: Yes: Normal Capillary Refill Neurological: Yes: Fully Oriented, Alert Breathalyzer - Breathalyzer Breathalyzer: 0 Urine Drug Screen - Test Device Lot number: [id number] Expiration date: 07/25/18 - Control Is test valid?: Yes - Results Drug screen NEGATIVE: No Urine drug screen results: THC-Marijuana, FEN-Fentanyl Inpatient Rehab Admission - Rehab Decision to Admit Inpatient rehab admission?: No
--- NOTE | 2018-11-23 17:47 | PN ---
Teaching Attending Note Name of Resident: Damian Mcghee ATTENDING PHYSICIAN STATEMENT I saw and evaluated the patient. I reviewed the resident's note and discussed the case with the resident. I agree with the resident's findings and plan as documented. SUBJECTIVE: 23 yo with h/o CVA related to benzo withdrawal seizures, here for heroin detox takes 1-2 bundles/day, and h/o OD's. Also using xanax 6mg/day- last use Tuesday. OBJECTIVE: Vital Signs - 24 hr 11/23/18 15:45 Temperature 98.1 F Pulse Rate 77 Respiratory 18 Rate Blood Pressure 114/52 L tremulous alert and oriented ASSESSMENT AND PLAN: here for benzo withdrawal Rx- valium detox OUD: heroin detox protocol, d/w pt [facility] methadone
[2018-11-23] MEDS ORDERED: BISMUTH SUBSALICYLATE 524 MG/30 ML UD PO PRN (17:54)
[2018-11-23] MEDS ORDERED: NICOTINE POLACRILEX 4 MG GUM BUC PRN (17:54)
[2018-11-23] MEDS ORDERED: ACETAMINOPHEN 325 MG TABLET (FP) PO PRN ×2 (17:54)
[2018-11-23] MEDS ORDERED: IBUPROFEN 400 MG TABLET (FP) PO PRN (17:54)
[2018-11-23] MEDS ORDERED: MENTHOL/PHENOL 1 EACH UD MM PRN (17:54)
[2018-11-23] MEDS ORDERED: MAGNESIUM HYDROX 2400MG/30ML ORAL SUSPENSION 30 ML CUP PO PRN (17:54)
[2018-11-23] MEDS ORDERED: diazePAM 5 MG TABLET PO PRN (17:54)
[2018-11-23] MEDS ORDERED: MAG HYDROX/AL HYDROX/SIMETH 30 ML UNIT-DOSE CUP PO PRN (17:54)
[2018-11-23] MEDS ORDERED: cloNIDine HCL 0.1 MG TABLET PO PRN (17:54)
[2018-11-23] MEDS ORDERED: METHOCARBAMOL 500 MG TABLET PO PRN (17:54)
[2018-11-23] MEDS ORDERED: MAGNESIUM CITRATE 300 ML BOTTLE PO PRN (17:54)
[2018-11-23] MEDS ORDERED: METHADONE HCL 10 MG TABLET (FOR DETOX USE ONLY) PO ONE (18:30)
[2018-11-23] MEDS: diazePAM 5 MG TABLET PO PRN (19:15)
[2018-11-23] MEDS ORDERED: diazePAM 5 MG TABLET PO SCH (22:00)
[2018-11-23] MEDS: THIAMINE HCL 100 MG TABLET (FP) PO SCH (22:42)
[2018-11-24] MEDS: diazePAM 5 MG TABLET PO PRN ×4 (05:19→22:12)
[2018-11-24] MEDS ORDERED: METHADONE HCL 5 MG TABLET (FOR DETOX USE ONLY) ONE (09:29)
[2018-11-24] MEDS ORDERED: METHADONE HCL 10 MG TABLET (FOR DETOX USE ONLY) ONE (09:29)
[2018-11-24] MEDS ORDERED: METHADONE (DETOX) 20 MG, METHADONE (DETOX) 5 MG PO ONE (10:00)
[2018-11-24 10:02] LABS: HEMATOCRIT 39.4 % (35.4-49); HEMOGLOBIN 13.5 GM/dL (11.7-16.9); MCH 30.6 pg (25.7-33.7); MCHC 34.2 g/dl (32.0-35.9); MEAN CELL VOLUME 89.5 fl (80-96); MEAN PLT VOLUME 9.9 fl (7.5-11.1); PLATELET COUNT 199 K/MM3 (134-434); RBC 4.41 M/mm3 (4.00-5.60); RDW 13.4 % (11.9-15.9); WHITE BLOOD COUNT 5.5 K/mm3 (4.0-10.0)
[2018-11-24 10:09] LABS: ALBUMIN 3.6 g/dl (3.4-5.0); BILIRUBIN,TOTAL 0.3 mg/dL (0.2-1); BLOOD UREA NITROGEN 13.9 mg/dL (7-18); CALCIUM 9.2 mg/dL (8.5-10.1); CREATININE 0.9 mg/dL (0.55-1.3); POTASSIUM 4.5 mmol/L (3.5-5.1); TOT PROT 6.6 g/dl (6.4-8.2)
[2018-11-24] MEDS: PRENATAL VITAMINS W/ FOLIC ACID TABLET (FP) PO SCH (10:26)
[2018-11-24] MEDS: NICOTINE 14 MG/24 HOURS TOPICAL PATCH TD SCH (10:27)
--- NOTE | 2018-11-24 11:54 | EKG ---
Test Reason : Blood Pressure : / mmHG Vent. Rate : 062 BPM Atrial Rate : 062 BPM P-R Int : 172 ms QRS Dur : 102 ms QT Int : 402 ms P-R-T Axes : -22 048 049 degrees QTc Int : 408 ms NORMAL SINUS RHYTHM NORMAL ECG WHEN COMPARED WITH ECG OF 02-NOV-2018 21:19, NO SIGNIFICANT CHANGE WAS FOUND Confirmed by XAVIER HINOJOSA MD ([id number]) on 11/24/2018 11:53:38 AM Referred By: Confirmed By:XAVIER HINOJOSA MD
--- NOTE | 2018-11-24 13:03 | PN ---
S COWS - Scale Resting Pulse: 0= [place] 80 or Below Sweatin= Chills/Flushing Restless Observation: 1= Difficult to Sit Still Pupil Size: 1= Pupils >than Normal Bone or Joint Aches: 2= Severe Diffuse Aches Runny Nose/ Eye Tearin= Nasal Congestion GI Upset > 30mins: 2= Nausea/Diarrhea Tremor Observation of Outstretched Hands: 2= Slight Tremor Visible Yawning Observation: 1= 1-2x During Session Anxiety or Irritability: 2=Irritable/Anxious Goose Flesh Skin: 0=Smooth Skin COWS Score: 13 BHS Progress Note (SOAP) Subjective: alert,irritable,anxious,interrupted sleep,pain in the body and back Objective: 11/24/18 13:00 Vital Signs Temperature 97.2 F L 11/24/18 09:40 Pulse Rate 69 11/24/18 09:40 Respiratory Rate 18 11/24/18 09:40 Blood Pressure 122/72 11/24/18 09:40 O2 Sat by Pulse Oximetry (%) Laboratory Last Values WBC 5.5 K/mm3 (4.0-10.0) 11/24/18 07:30 RBC 4.41 M/mm3 (4.00-5.60) 11/24/18 07:30 Hgb 13.5 GM/dL (11.7-16.9) 11/24/18 07:30 Hct 39.4 % (35.4-49) 11/24/18 07:30 MCV 89.5 fl (80-96) 11/24/18 07:30 MCH 30.6 pg (25.7-33.7) 11/24/18 07:30 MCHC 34.2 g/dl (32.0-35.9) 11/24/18 07:30 RDW 13.4 % (11.9-15.9) 11/24/18 07:30 Plt Count 199 K/MM3 (134-434) 11/24/18 07:30 MPV 9.9 fl (7.5-11.1) 11/24/18 07:30 Sodium 141 mmol/L (136-145) 11/24/18 07:30 Potassium 4.5 mmol/L (3.5-5.1) 11/24/18 07:30 Chloride 104 mmol/L (98-107) 11/24/18 07:30 Carbon Dioxide 30 mmol/L (21-32) 11/24/18 07:30 Anion Gap 6 MMOL/L (8-16) L 11/24/18 07:30 BUN 13.9 mg/dL (7-18) 11/24/18 07:30 Creatinine 0.9 mg/dL (0.55-1.3) 11/24/18 07:30 Est GFR (CKD-EPI)AfAm 138.06 11/24/18 07:30 Est GFR (CKD-EPI)NonAf 119.12 11/24/18 07:30 Random Glucose 71 mg/dL (74-106) L 11/24/18 07:30 Calcium 9.2 mg/dL (8.5-10.1) 11/24/18 07:30 Total Bilirubin 0.3 mg/dL (0.2-1) 11/24/18 07:30 AST 20 U/L (15-37) 11/24/18 07:30 ALT 24 U/L (13-61) 11/24/18 07:30 Alkaline Phosphatase 62 U/L (45-117) 11/24/18 07:30 Total Protein 6.6 g/dl (6.4-8.2) 11/24/18 07:30 Albumin 3.6 g/dl (3.4-5.0) 11/24/18 07:30 RPR Titer Nonreactive (NONREACTIVE) 11/24/18 07:30 Assessment: 11/24/18 13:01 withdrawal symptom Plan: continue detox methadone regimen
[2018-11-24] MEDS: THIAMINE HCL 100 MG TABLET (FP) PO SCH (22:09)
[2018-11-25] MEDS ORDERED: diazePAM 5 MG TABLET PO SCH (06:00)
[2018-11-25] MEDS: PRENATAL VITAMINS W/ FOLIC ACID TABLET (FP) PO SCH (09:29)
[2018-11-25] MEDS: diazePAM 5 MG TABLET PO PRN ×3 (09:29→21:13)
[2018-11-25] MEDS: NICOTINE 14 MG/24 HOURS TOPICAL PATCH TD SCH (09:33)
[2018-11-25] MEDS ORDERED: METHADONE HCL 10 MG TABLET (FOR DETOX USE ONLY) PO ONE (10:00)
--- NOTE | 2018-11-25 15:02 | PN ---
BHS COWS - Scale Resting Pulse: 0= [place] 80 or Below Sweatin= Chills/Flushing Restless Observation: 3= Extraneous Movement Pupil Size: 0= Normal to Room Light Bone or Joint Aches: 1= Mild Discomfort Runny Nose/ Eye Tearin= None GI Upset > 30mins: 0= None Tremor Observation of Outstretched Hands: 1= Tremor [place], Not Seen Yawning Observation: 0= None Anxiety or Irritability: 1=Feels Anxious/Irritable Goose Flesh Skin: 0=Smooth Skin COWS Score: 7 BHS Progress Note (SOAP) Subjective: Anxiety, chills, fatigue. Objective: 11/25/18 15:01 Vital Signs - 24 hr 11/24/18 11/24/18 11/25/18 17:52 21:31 00:30 Temperature 98.4 F 97.3 F L Pulse Rate 68 60 Respiratory 18 16 18 Rate Blood Pressure 133/80 125/78 11/25/18 11/25/18 11/25/18 03:30 06:03 09:09 Temperature 96.8 F L 97.6 F Pulse Rate 55 L 55 L Respiratory 18 16 18 Rate Blood Pressure 108/72 103/61 Laboratory Tests 11/24/18 11/24/18 11/24/18 07:30 07:30 07:30 WBC 5.5 RBC 4.41 Hgb 13.5 Hct 39.4 MCV 89.5 MCH 30.6 MCHC 34.2 RDW 13.4 Plt Count 199 MPV 9.9 Sodium 141 Potassium 4.5 Chloride 104 Carbon Dioxide 30 Anion Gap 6 L BUN 13.9 Creatinine 0.9 Est GFR (CKD-EPI)AfAm 138.06 Est GFR (CKD-EPI)NonAf 119.12 Random Glucose 71 L Calcium 9.2 Total Bilirubin 0.3 AST 20 ALT 24 Alkaline Phosphatase 62 Total Protein 6.6 Albumin 3.6 RPR Titer Nonreactive Assessment: 11/25/18 15:01 withdrawal sx nad Plan: continue Methadone detox taper d/w pt to increase po fluids
[2018-11-25] MEDS ORDERED: PT OWN MED DRAWER 7, Y5N ONE (19:57)
[2018-11-25] MEDS: THIAMINE HCL 100 MG TABLET (FP) PO SCH (21:13)
[2018-11-26] MEDS ORDERED: diazePAM 5 MG TABLET PO ONE (06:00)
[2018-11-26] MEDS ORDERED: METHADONE HCL 5 MG TABLET (FOR DETOX USE ONLY) ONE (09:43)
[2018-11-26] MEDS ORDERED: METHADONE HCL 10 MG TABLET (FOR DETOX USE ONLY) ONE (09:43)
[2018-11-26] MEDS ORDERED: METHADONE (DETOX) 10 MG, METHADONE (DETOX) 5 MG PO ONE (10:00)
[2018-11-26] MEDS: PRENATAL VITAMINS W/ FOLIC ACID TABLET (FP) PO SCH (10:25)
[2018-11-26] MEDS: NICOTINE 14 MG/24 HOURS TOPICAL PATCH TD SCH (10:26)
[2018-11-26] MEDS: diazePAM 5 MG TABLET PO PRN ×2 (10:27→16:57)
--- NOTE | 2018-11-26 11:50 | PN ---
S CIWA - CIWA Score Nausea/Vomitin-No Nausea/No Vomiting Muscle Tremors: 2 Anxiety: 2 Agitation: 2 Paroxysmal Sweats: No Perspiration Orientation: 0-Oriented Tacttile Disturbances: 0-None Auditory Disturbances: 0-None Visual Disturbances: 0-None Headache: 0-None Present CIWA-Ar Total Score: 6 BHS COWS - Scale Resting Pulse: 0= [place] 80 or Below Sweatin= Chills/Flushing Restless Observation: 0= Sits Still Pupil Size: 0= Normal to Room Light Bone or Joint Aches: 1= Mild Discomfort Runny Nose/ Eye Tearin= None GI Upset > 30mins: 1= Stomach Cramp Tremor Observation of Outstretched Hands: 1= Tremor [place], Not Seen Yawning Observation: 1= 1-2x During Session Anxiety or Irritability: 1=Feels Anxious/Irritable Goose Flesh Skin: 0=Smooth Skin COWS Score: 6 S Progress Note (SOAP) Subjective: 23 years old male [facility] patient [facility] admission was admitted on 11/23/18 for benzo and opiate withdrawal sx management doing well with valium and methadone detox regimen questioning about valium prn instead of routine daily discuss medication assisted treatment program Objective: 11/26/18 11:52 Vital Signs Temperature 97.2 F L 11/26/18 09:50 Pulse Rate 61 11/26/18 09:50 Respiratory Rate 18 11/26/18 09:50 Blood Pressure 122/79 11/26/18 09:50 O2 Sat by Pulse Oximetry (%) Laboratory Last Values WBC 5.5 K/mm3 (4.0-10.0) 11/24/18 07:30 RBC 4.41 M/mm3 (4.00-5.60) 11/24/18 07:30 Hgb 13.5 GM/dL (11.7-16.9) 11/24/18 07:30 Hct 39.4 % (35.4-49) 11/24/18 07:30 MCV 89.5 fl (80-96) 11/24/18 07:30 MCH 30.6 pg (25.7-33.7) 11/24/18 07:30 MCHC 34.2 g/dl (32.0-35.9) 11/24/18 07:30 RDW 13.4 % (11.9-15.9) 11/24/18 07:30 Plt Count 199 K/MM3 (134-434) 11/24/18 07:30 MPV 9.9 fl (7.5-11.1) 11/24/18 07:30 Sodium 141 mmol/L (136-145) 11/24/18 07:30 Potassium 4.5 mmol/L (3.5-5.1) 11/24/18 07:30 Chloride 104 mmol/L (98-107) 11/24/18 07:30 Carbon Dioxide 30 mmol/L (21-32) 11/24/18 07:30 Anion Gap 6 MMOL/L (8-16) L 11/24/18 07:30 BUN 13.9 mg/dL (7-18) 11/24/18 07:30 Creatinine 0.9 mg/dL (0.55-1.3) 11/24/18 07:30 Est GFR (CKD-EPI)AfAm 138.06 11/24/18 07:30 Est GFR (CKD-EPI)NonAf 119.12 11/24/18 07:30 Random Glucose 71 mg/dL (74-106) L 11/24/18 07:30 Calcium 9.2 mg/dL (8.5-10.1) 11/24/18 07:30 Total Bilirubin 0.3 mg/dL (0.2-1) 11/24/18 07:30 AST 20 U/L (15-37) 11/24/18 07:30 ALT 24 U/L (13-61) 11/24/18 07:30 Alkaline Phosphatase 62 U/L (45-117) 11/24/18 07:30 Total Protein 6.6 g/dl (6.4-8.2) 11/24/18 07:30 Albumin 3.6 g/dl (3.4-5.0) 11/24/18 07:30 RPR Titer Nonreactive (NONREACTIVE) 11/24/18 07:30 lab noted Assessment: 11/26/18 11:53 benzo and opiate withdrawal sx ambulating on hallway steady gait alert oriented x 3 speech clearly 11/26/18 11:54 S1S2 regular rate rhythm abdomen soft no rebound tenderness Plan: continue valium prn and methadone detox regimen
[2018-11-26] MEDS: MELATONIN 5 MG TABLETS PO PRN (22:42)
[2018-11-26] MEDS: THIAMINE HCL 100 MG TABLET (FP) PO SCH (22:42)
[2018-11-26] MEDS: hydrOXYzine PAMOATE 25 MG CAPSULE (FP) PO PRN (22:45)
[2018-11-27] MEDS ORDERED: METHADONE HCL 10 MG TABLET (FOR DETOX USE ONLY) PO ONE (10:00)
[2018-11-27] MEDS: NICOTINE 14 MG/24 HOURS TOPICAL PATCH TD SCH (10:07)
[2018-11-27] MEDS: PRENATAL VITAMINS W/ FOLIC ACID TABLET (FP) PO SCH (10:07)
--- NOTE | 2018-11-27 10:46 | PN ---
S CIWA - CIWA Score Nausea/Vomitin-No Nausea/No Vomiting Muscle Tremors: 2 Anxiety: 1-Mildly Anxious Agitation: 1-Slight > Activity Paroxysmal Sweats: No Perspiration Orientation: 0-Oriented Tacttile Disturbances: 0-None Auditory Disturbances: 0-None Visual Disturbances: 0-None Headache: 0-None Present CIWA-Ar Total Score: 4 S COWS - Scale Resting Pulse: 0= [place] 80 or Below Sweatin= Chills/Flushing Restless Observation: 0= Sits Still Pupil Size: 0= Normal to Room Light Bone or Joint Aches: 1= Mild Discomfort Runny Nose/ Eye Tearin= None GI Upset > 30mins: 0= None Tremor Observation of Outstretched Hands: 1= Tremor [place], Not Seen Yawning Observation: 0= None Anxiety or Irritability: 1=Feels Anxious/Irritable Goose Flesh Skin: 0=Smooth Skin COWS Score: 4 S Progress Note (SOAP) Subjective: 23 years old male admitted on 11/23/18 for benzo and opiate withdrawal sx management doing well with valium and methadone detox regimen encourage considering medication assisted treatment program Objective: 11/27/18 10:48 Vital Signs Temperature 98.1 F 11/27/18 09:16 Pulse Rate 72 11/27/18 09:16 Respiratory Rate 18 11/27/18 09:16 Blood Pressure 105/75 11/27/18 09:16 O2 Sat by Pulse Oximetry (%) Laboratory Last Values WBC 5.5 K/mm3 (4.0-10.0) 11/24/18 07:30 RBC 4.41 M/mm3 (4.00-5.60) 11/24/18 07:30 Hgb 13.5 GM/dL (11.7-16.9) 11/24/18 07:30 Hct 39.4 % (35.4-49) 11/24/18 07:30 MCV 89.5 fl (80-96) 11/24/18 07:30 MCH 30.6 pg (25.7-33.7) 11/24/18 07:30 MCHC 34.2 g/dl (32.0-35.9) 11/24/18 07:30 RDW 13.4 % (11.9-15.9) 11/24/18 07:30 Plt Count 199 K/MM3 (134-434) 11/24/18 07:30 MPV 9.9 fl (7.5-11.1) 11/24/18 07:30 Sodium 141 mmol/L (136-145) 11/24/18 07:30 Potassium 4.5 mmol/L (3.5-5.1) 11/24/18 07:30 Chloride 104 mmol/L (98-107) 11/24/18 07:30 Carbon Dioxide 30 mmol/L (21-32) 11/24/18 07:30 Anion Gap 6 MMOL/L (8-16) L 11/24/18 07:30 BUN 13.9 mg/dL (7-18) 11/24/18 07:30 Creatinine 0.9 mg/dL (0.55-1.3) 11/24/18 07:30 Est GFR (CKD-EPI)AfAm 138.06 11/24/18 07:30 Est GFR (CKD-EPI)NonAf 119.12 11/24/18 07:30 Random Glucose 71 mg/dL (74-106) L 11/24/18 07:30 Calcium 9.2 mg/dL (8.5-10.1) 11/24/18 07:30 Total Bilirubin 0.3 mg/dL (0.2-1) 11/24/18 07:30 AST 20 U/L (15-37) 11/24/18 07:30 ALT 24 U/L (13-61) 11/24/18 07:30 Alkaline Phosphatase 62 U/L (45-117) 11/24/18 07:30 Total Protein 6.6 g/dl (6.4-8.2) 11/24/18 07:30 Albumin 3.6 g/dl (3.4-5.0) 11/24/18 07:30 RPR Titer Nonreactive (NONREACTIVE) 11/24/18 07:30 lab noted Assessment: 11/27/18 10:48 benzo and opiate withdrawal sx alert oriented x 3 limited conversation with staff ambulating on hallway social with peersd Plan: continue valium and methadone detox regimen
[2018-11-27] MEDS: THIAMINE HCL 100 MG TABLET (FP) PO SCH (22:17)
[2018-11-27] MEDS: MELATONIN 5 MG TABLETS PO PRN (22:19)
[2018-11-27] MEDS: hydrOXYzine PAMOATE 25 MG CAPSULE (FP) PO PRN (22:19)
[2018-11-28] MEDS ORDERED: METHADONE HCL 5 MG TABLET (FOR DETOX USE ONLY) PO ONE (06:00)
[2018-11-28 06:11] VITALS: BP 102/64; PULSE 63; TEMP 97.8
--- NOTE | 2018-11-28 11:38 | DS ---
[facility] Detox Discharge Summary Admission Date: 11/23/18 Discharge Date: 11/28/18 - History Present History: Opioid Dependence, Sedative Dependence Additional Comments: 23 years old male 4th [facility] admission was admitted on 11/23/18 for benzo and opiate withdrawal sx management did well with Valium and methadone detox regimen no complication through out the detox stay alert oriented x 3 cardiac S1S2 regular rate rhythm respiratory clear lung bilaterally on auscultation extremities full range of motion skin warm and dry Pertinent Past History: patient agrees to return to [facility] for [facility] - Physical Exam Results Vital Signs: Vital Signs Temperature 97.8 F 11/28/18 06:11 Pulse Rate 63 11/28/18 06:11 Respiratory Rate 18 11/28/18 06:11 Blood Pressure 102/64 11/28/18 06:11 O2 Sat by Pulse Oximetry (%) Pertinent Admission Physical Exam Findings: benzo and opiate withdrawal sx Laboratory Last Values WBC 5.5 K/mm3 (4.0-10.0) 11/24/18 07:30 RBC 4.41 M/mm3 (4.00-5.60) 11/24/18 07:30 Hgb 13.5 GM/dL (11.7-16.9) 11/24/18 07:30 Hct 39.4 % (35.4-49) 11/24/18 07:30 MCV 89.5 fl (80-96) 11/24/18 07:30 MCH 30.6 pg (25.7-33.7) 11/24/18 07:30 MCHC 34.2 g/dl (32.0-35.9) 11/24/18 07:30 RDW 13.4 % (11.9-15.9) 11/24/18 07:30 Plt Count 199 K/MM3 (134-434) 11/24/18 07:30 MPV 9.9 fl (7.5-11.1) 11/24/18 07:30 Sodium 141 mmol/L (136-145) 11/24/18 07:30 Potassium 4.5 mmol/L (3.5-5.1) 11/24/18 07:30 Chloride 104 mmol/L (98-107) 11/24/18 07:30 Carbon Dioxide 30 mmol/L (21-32) 11/24/18 07:30 Anion Gap 6 MMOL/L (8-16) L 11/24/18 07:30 BUN 13.9 mg/dL (7-18) 11/24/18 07:30 Creatinine 0.9 mg/dL (0.55-1.3) 11/24/18 07:30 Est GFR (CKD-EPI)AfAm 138.06 11/24/18 07:30 Est GFR (CKD-EPI)NonAf 119.12 11/24/18 07:30 Random Glucose 71 mg/dL (74-106) L 11/24/18 07:30 Calcium 9.2 mg/dL (8.5-10.1) 11/24/18 07:30 Total Bilirubin 0.3 mg/dL (0.2-1) 11/24/18 07:30 AST 20 U/L (15-37) 11/24/18 07:30 ALT 24 U/L (13-61) 11/24/18 07:30 Alkaline Phosphatase 62 U/L (45-117) 11/24/18 07:30 Total Protein 6.6 g/dl (6.4-8.2) 11/24/18 07:30 Albumin 3.6 g/dl (3.4-5.0) 11/24/18 07:30 RPR Titer Nonreactive (NONREACTIVE) 11/24/18 07:30 lab noted - Treatment Hospital Course: Detox Protocol Followed, Detoxed Safely, Responded well, Discharged Condition Good, Rehab Referral Accepted Patient has Accepted a Rehab Referral to: [facility] - Medication Discharge Medications: Ambulatory Orders NK [No Known Home Medication] 11/11/17 - Diagnosis (1) Weight loss Status: Acute (2) Nicotine dependence Status: Acute Qualifiers: Nicotine product type: cigarettes Substance use status: in withdrawal Qualified Code(s): F17.213 - Nicotine dependence, cigarettes, with withdrawal (3) Opioid dependence with withdrawal Status: Acute (4) Sedative, hypnotic or anxiolytic dependence with withdrawal, uncomplicated Status: Acute (5) IVDU (intravenous drug user) Status: Chronic - AMA Did Patient Leave Against Medical Advice: No
== END 2018-11-28 09:07 | disposition home or self-care (01) | DRG 773 ==
LOC: YASAS 14:25 → Y3N 18:08
PROVIDERS: ADMIT Surgery; ATTEND Surgery
PROC: HZ2ZZZZ Detoxification Services for Substance Abuse Treatment (ICD-10-PCS; principal; 2018-11-23)
DX: F11.23 Opioid dependence with withdrawal (principal); F13.230 Sedative, hypnotic or anxiolytic dependence with withdrawal, uncomplicated; F17.213 Nicotine dependence, cigarettes, with withdrawal; I69.854 Hemiplegia and hemiparesis following other cerebrovascular disease affecting left non-dominant side; R63.4 Abnormal weight loss; Z68.22 Body mass index [BMI] 22.0-22.9, adult; Z86.69 Personal history of other diseases of the nervous system and sense organs
CPT/HCPCS: 36415; 80053; 85027; 86480; 86593; 93005; 93010

== ENCOUNTER 2018-12-28 12:24 | Inpatient (IN) | payer OTHER ==
[2018-12-28 16:48] VITALS: BMI 21.7
--- NOTE | 2018-12-28 18:12 | HP ---
COWS - Scale Resting Pulse: 0= ME 80 or Below Sweatin=Flushed/Facial Moisture Restless Observation: 1= Difficult to Sit Still Pupil Size: 0= Normal to Room Light Bone or Joint Aches: 2= Severe Diffuse Aches Runny Nose/ Eye Tearin= None GI Upset > 30mins: 1= Stomach Cramp Tremor Observation: 4= Gross Tremor/Twitching Yawning Observation: 1= 1-2x During Session Anxiety or Irritability: 2=Irritable/Anxious Goose Flesh Skin: 0=Smooth Skin COWS Score: 13 CIWA Score Nausea/Vomitin-No Nausea/No Vomiting Muscle Tremors: 3 Anxiety: 2 Agitation: 0-Normal Activity Paroxysmal Sweats: 2 Orientation: 0-Oriented Tacttile Disturbances: 0-None Auditory Disturbances: 0-None Visual Disturbances: 0-None Headache: 0-None Present CIWA-Ar Total Score: 7 - Admission Criteria OASAS Guidelines: Admission for Medically Managed Detox: Requires at least one of the followin. CIWA greater than 12 2. Seizures within the past 24 hours 3. Delirium tremens within the past 24 hours 4. Hallucinations within the past 24 hours 5. Acute intervention needed for co occurring medical disorder 6. Acute intervention needed for co occurring psychiatric disorder 7. Severe withdrawal that cannot be handled at a lower level of care (continued vomiting, continued diarrhea, abnormal vital signs) requiring intravenous medication and/or fluids 8. 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 recently here 1 month ago. Does not want rehab because he has a job offer. Heroin: last used this morning, 1 bundle a day (10 bags per day), sniffs it; used to inject 1 year ago; never had withdrawal seizure, started at 20 years old Xanax: last used day before yesterday; uses 2-3 sticks of 2mg xanax every day since last year; has had withdrawal seizures from xanax, had last seizure in 2017 Cocaine: last used yesterday, uses once a week 1 bag sniff Cigarettes: 1 pack per day, started at 20 Marijuana: 1 joint a day, 13 years old Surgery: L ACL repair (2011) Living Situation: staying at a friends house; does not use, no or kids Family: no family history of heart disease or cancer; dad used to smoke crack 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 [employer] - Ebola screening Have you traveled outside of the country in the last 21 days: No Have you had contact with anyone from an Ebola affected area: No - Review of Systems Constitutional: Chills, Loss of Appetite, Changes in sleep EENT: reports: Nose Congestion Respiratory: reports: No Symptoms reported Cardiac: reports: No Symptoms Reported GI: reports: Abdominal cramping : reports: No Symptoms Reported Musculoskeletal: reports: Back Pain, Joint Pain, Muscle Pain Integumentary: reports: No Symptoms Reported Neuro: reports: Weakness Endocrine: reports: Excessive Sweating Hematology: reports: Anemia, Blood Clots ("caused my stroke") Psychiatric: reports: Judgement Intact, Mood/Affect Appropiate, Orientated x3, Anxious Patient History - Patient Medical History Hx Anemia: No Hx Asthma: No Hx Chronic Obstructive Pulmonary Disease (COPD): No Hx Cardiac Disorders: No Hx Hypertension: No Hx Hypercholesterolemia: No Hx Seizures: Yes (LAST IN 2017 DUE TO XANAX WITHDRAWAL SX) Hx Diabetes: No Hx Gastrointestinal Disorders: No Hx Genitourinary Disorders: No Hx Sexually Transmitted Disorders: No Hx Renal Disease (ESRD): No Hx Thyroid Disease: No Hx Human Immunodeficiency Virus (HIV): No (NEGATIVE HX) Hx Hepatitis C: No Hx Depression: No Hx Suicide Attempt: No (DENIES) Hx Bipolar Disorder: No Hx Schizophrenia: No - Patient Surgical History Past Surgical History: Yes Hx Neurologic Surgery: No Hx Cataract Extraction: No Hx Cardiac Surgery: No Hx Lung Surgery: No Hx Breast Surgery: No Hx Breast Biopsy: No Hx Abdominal Surgery: No Hx Appendectomy: No Hx Cholecystectomy: No Hx Genitourinary Surgery: No Hx Section: No Hx Orthopedic Surgery: Yes (LEFT ACL TEAR REPAIRED IN 2010) Anesthesia Reaction: No - PPD History Date: 11/13/17 Results: 0 mm - Smoking Cessation Smoking history: Current every day smoker Have you smoked in the past 12 months: Yes Aproximately how many cigarettes per day: 10 Hx Chewing Tobacco Use: No Initiated information on smoking cessation: Yes 'Breaking Loose' booklet given: 12/28/18 - Substances abused Alprazolam (Xanax) Substance route: Oral Frequency: Daily Amount used: 6 mg Age of first use: 19 Date of last use: 12/26/18 Heroin Substance route: Inhalation Frequency: Daily Amount used: 1 bundles Age of first use: 20 Date of last use: 12/28/18 Admission Physical Exam [facility] - Vital Signs Vital Signs: Vital Signs - 24 hr 12/28/18 12/28/18 16:39 18:00 Temperature 98.1 F 98.1 F Pulse Rate 61 61 Respiratory 20 20 Rate Blood Pressure 123/74 123/74 - Physical General Appearance: Yes: Within Normal Limits, No Apparent Distress, Nourished, Appropriately Dressed HEENTM: Yes: EOMI, Normal ENT Inspection, Normocephalic, Normal Voice, JOSE Respiratory: Yes: Within Normal Limits, Chest Non-Tender, Lungs Clear, Normal Breath Sounds Neck: Yes: Within Normal Limits, No masses,lesions,Nodules Cardiology: Yes: Regular Rhythm, Regular Rate Abdominal: Yes: Normal Bowel Sounds, Non Tender, Flat, Soft Genitourinary: Yes: Within Normal Limits Back: Yes: Within Normal Limits Musculoskeletal: Yes: Other (L 3rd digit tenderness) Extremities: Yes: Normal Capillary Refill, Normal Inspection, Normal Range of Motion, Non-Tender Neurological: Yes: 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 II-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 NML intact, Fully Oriented, Alert, Motor Strength 5/5, Normal Mood/Affect Integumentary: Yes: Normal Color, Dry, Warm - Addiitonal Findings: EKG on last admission QtC 408 - Diagnostic (1) Opioid dependence with withdrawal Current Visit: No Status: Acute (2) Sedative, hypnotic or anxiolytic dependence with withdrawal, uncomplicated Current Visit: No Status: Acute Cleared for Admission [facility] - Detox or Rehab [facility] Level of Care: Medically Supervised Detox Regimen/Protocol: Methadone Breathalyzer - Breathalyzer Breathalyzer: 0 Urine Drug Screen - Test Device Lot number: [id number] Expiration date: 01/24/19 - Control Is test valid?: Yes - Results Drug screen NEGATIVE: No Urine drug screen results: THC-Marijuana, STACEY-Cocaine, FEN-Fentanyl, MOP-Opiates Inpatient Rehab Admission - Rehab Decision to Admit Inpatient rehab admission?: No
[2018-12-28] MEDS ORDERED: MAGNESIUM CITRATE 300 ML BOTTLE PO PRN (18:34)
[2018-12-28] MEDS ORDERED: ACETAMINOPHEN 325 MG TABLET (FP) PO PRN ×2 (18:34)
[2018-12-28] MEDS ORDERED: MELATONIN 5 MG TABLETS PO PRN (18:34)
[2018-12-28] MEDS ORDERED: MAGNESIUM HYDROX 2400MG/30ML ORAL SUSPENSION 30 ML CUP PO PRN (18:34)
[2018-12-28] MEDS ORDERED: cloNIDine HCL 0.1 MG TABLET PO PRN (18:34)
[2018-12-28] MEDS ORDERED: hydrOXYzine PAMOATE 25 MG CAPSULE (FP) PO PRN (18:34)
[2018-12-28] MEDS ORDERED: IBUPROFEN 400 MG TABLET (FP) PO PRN (18:34)
[2018-12-28] MEDS ORDERED: MENTHOL/PHENOL 1 EACH UD MM PRN (18:34)
[2018-12-28] MEDS ORDERED: MAG HYDROX/AL HYDROX/SIMETH 30 ML UNIT-DOSE CUP PO PRN (18:34)
[2018-12-28] MEDS ORDERED: METHOCARBAMOL 500 MG TABLET PO PRN (18:34)
[2018-12-28] MEDS ORDERED: BISMUTH SUBSALICYLATE 524 MG/30 ML UD PO PRN (18:34)
[2018-12-28] MEDS ORDERED: METHADONE HCL 10 MG TABLET (FOR DETOX USE ONLY) PO ONE (19:20)
--- NOTE | 2018-12-28 19:44 | PN ---
Teaching Attending Note Name of Resident: Cam Gutierrez ATTENDING PHYSICIAN STATEMENT I saw and evaluated the patient. I reviewed the resident's note and discussed the case with the resident. I agree with the resident's findings and plan as documented. SUBJECTIVE: 23 year old male requesting detox from heroin , reports 1 bundle/ day via inhalation , IVDU in the past , first age of use 20 . cocaine : weekly 1 bag via inhalation tobacco : 1 ppd Xanax : 3-6 mg /d , latest 2 d. 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 Nicotine dependence - smoking cessation counselling.
[2018-12-28] MEDS: clonazePAM 0.5 MG TABLET PO PRN (20:07)
[2018-12-28] MEDS: THIAMINE HCL 100 MG TABLET (FP) PO SCH (22:26)
[2018-12-29] MEDS ORDERED: METHADONE HCL 10 MG TABLET (FOR DETOX USE ONLY) ONE (08:50)
[2018-12-29] MEDS ORDERED: METHADONE HCL 5 MG TABLET (FOR DETOX USE ONLY) ONE (08:50)
[2018-12-29] MEDS ORDERED: METHADONE (DETOX) 20 MG, METHADONE (DETOX) 5 MG PO ONE (10:00)
[2018-12-29] MEDS: PRENATAL VITAMINS W/ FOLIC ACID TABLET (FP) PO SCH (10:23)
[2018-12-29] MEDS: clonazePAM 0.5 MG TABLET PO PRN (10:27)
[2018-12-29 10:46] LABS: ALBUMIN 3.4 g/dl (3.4-5.0); BILIRUBIN,TOTAL 0.5 mg/dL (0.2-1); BLOOD UREA NITROGEN 10.6 mg/dL (7-18); CALCIUM 8.8 mg/dL (8.5-10.1); CREATININE 0.9 mg/dL (0.55-1.3); HEMATOCRIT 39.8 % (35.4-49); HEMOGLOBIN 13.8 GM/dL (11.7-16.9); MCH 31.1 pg (25.7-33.7); MCHC 34.6 g/dl (32.0-35.9); MEAN CELL VOLUME 89.9 fl (80-96); MEAN PLT VOLUME 11.5 fl (7.5-11.1); PLATELET COUNT 173 K/MM3 (134-434); POTASSIUM 4.6 mmol/L (3.5-5.1); RBC 4.42 M/mm3 (4.00-5.60); RDW 13.4 % (11.9-15.9); TOT PROT 6.2 g/dl (6.4-8.2)
--- NOTE | 2018-12-29 11:37 | PN ---
S CIWA - CIWA Score Nausea/Vomitin Muscle Tremors: None Anxiety: 4-Mod. Anxious/Guarded Agitation: 0-Normal Activity Paroxysmal Sweats: No Perspiration Orientation: 0-Oriented Tacttile Disturbances: 0-None Auditory Disturbances: 0-None Visual Disturbances: 0-None Headache: 3-Moderate CIWA-Ar Total Score: 9 BHS COWS - Scale Resting Pulse: 0= [place] 80 or Below Sweatin= Chills/Flushing Restless Observation: 0= Sits Still Pupil Size: 0= Normal to Room Light Bone or Joint Aches: 2= Severe Diffuse Aches Runny Nose/ Eye Tearin= None GI Upset > 30mins: 2= Nausea/Diarrhea Tremor Observation of Outstretched Hands: 0= None Yawning Observation: 1= 1-2x During Session Anxiety or Irritability: 2=Irritable/Anxious Goose Flesh Skin: 0=Smooth Skin COWS Score: 8 BHS Progress Note (SOAP) Subjective: Patient admitted for heroin and xanax withdrawal symptoms. Patient c/o anxiety, nausea, chills and body aches. Objective: 12/29/18 11:39 Laboratory Tests 12/29/18 12/29/18 08:00 08:00 WBC 6.0 RBC 4.42 Hgb 13.8 Hct 39.8 MCV 89.9 MCH 31.1 MCHC 34.6 RDW 13.4 Plt Count 173 MPV 11.5 H D Sodium 138 Potassium 4.6 Chloride 103 Carbon Dioxide 28 Anion Gap 6 L BUN 10.6 Creatinine 0.9 Est GFR (CKD-EPI)AfAm 138.06 Est GFR (CKD-EPI)NonAf 119.12 Random Glucose 70 L Calcium 8.8 Total Bilirubin 0.5 AST 37 ALT 176 H Alkaline Phosphatase 81 Total Protein 6.2 L Albumin 3.4 Vital Signs Temperature 98.1 F 12/29/18 09:29 Pulse Rate 46 L 12/29/18 09:29 Respiratory Rate 18 12/29/18 09:29 Blood Pressure 112/73 12/29/18 09:29 O2 Sat by Pulse Oximetry (%) PE alert and oriented x 3 skin warm and dry neck supple, no jvd GI nt,nd ext full rom, no visible edema anxious, guarded amb ad brandy Assessment: 12/29/18 11:44 Heroin/BZO withdrawal symptoms Plan: Continue detox encourage oral fluids monitor clinically
[2018-12-29] MEDS: THIAMINE HCL 100 MG TABLET (FP) PO SCH (22:17)
[2018-12-30 09:12] VITALS: BP 119/70; PULSE 56; TEMP 96.8
[2018-12-30] MEDS ORDERED: METHADONE HCL 10 MG TABLET (FOR DETOX USE ONLY) PO ONE (10:00)
[2018-12-30] MEDS: PRENATAL VITAMINS W/ FOLIC ACID TABLET (FP) PO SCH (10:08)
[2018-12-30] MEDS: clonazePAM 0.5 MG TABLET PO PRN (10:08)
[2018-12-30] MEDS ORDERED: NICOTINE POLACRILEX 2 MG GUM BUC PRN (10:24)
[2018-12-30] MEDS ORDERED: NICOTINE 21 MG/24 HOURS TOPICAL PATCH TD SCH (10:30)
--- NOTE | 2018-12-30 19:01 | DS ---
[facility] Detox Discharge Summary Admission Date: 12/28/18 Discharge Date: 12/30/18 - History Present History: Opioid Dependence, Sedative Dependence Additional Comments: DESPITE EFFORTS BY HOMEWORKER AND BY NURSING STAFF TO ADDRESS PATIENT'S MEDICAL NEEDS / CONCERNS, PATIENT DOES NOT WISH TO REMAIN TO COMPLETE DETOX REGIMEN. RISKS OF LEAVING DETOX UNIT AGAINST MEDICAL ADVICE AND PRIOR TO COMPLETION OF DETOX REGIMEN EXPLAINED TO PATIENT. PATIENT ADVISED TO GO IMMEDIATELY TO NEAREST ER SHOULD ANY INTOLERABLE WITHDRAWAL / DETOX SYMPTOMS DEVELOP AT ANY TIME. PATIENT VERBALIZED UNDERSTANDING OF ALL INFORMATION / RECOMMENDATIONS PRESENTED TO HIM PRIOR TO DEPARTURE FROM DETOX UNIT. PATIENT LEFT DETOX UNIT IN STABLE MEDICAL CONDITION. Pertinent Past History: History Of Left ACL Repair, History Of Seizures (Due To Withdrawal), Nicotine Dependence. - Physical Exam Results Vital Signs: Vital Signs Temperature 96.8 F L 12/30/18 09:11 Pulse Rate 56 L 12/30/18 09:11 Respiratory Rate 16 12/30/18 09:11 Blood Pressure 119/70 12/30/18 09:11 O2 Sat by Pulse Oximetry (%) Pertinent Admission Physical Exam Findings: WITHDRAWAL SYMPTOMS. Laboratory Tests 12/29/18 12/29/18 12/29/18 08:00 08:00 08:00 WBC 6.0 RBC 4.42 Hgb 13.8 Hct 39.8 MCV 89.9 MCH 31.1 MCHC 34.6 RDW 13.4 Plt Count 173 MPV 11.5 H D Sodium 138 Potassium 4.6 Chloride 103 Carbon Dioxide 28 Anion Gap 6 L BUN 10.6 Creatinine 0.9 Est GFR (CKD-EPI)AfAm 138.06 Est GFR (CKD-EPI)NonAf 119.12 Random Glucose 70 L Calcium 8.8 Total Bilirubin 0.5 AST 37 ALT 176 H Alkaline Phosphatase 81 Total Protein 6.2 L Albumin 3.4 RPR Titer Nonreactive LABS NOTED. - Medication Discharge Medications: Ambulatory Orders NK [No Known Home Medication] 11/11/17 - Diagnosis (1) Opioid dependence with withdrawal Status: Acute (2) Sedative, hypnotic or anxiolytic dependence with withdrawal, uncomplicated Status: Acute - AMA Did Patient Leave Against Medical Advice: Yes (PATIENT DID NOT WISH TO REMAIN TO COMPLETE DETOX REGIMEN.) [facility] CIWA - CIWA Score Nausea/Vomitin Muscle Tremors: 2 Anxiety: 3 Agitation: 3 Paroxysmal Sweats: 2 (and Chills.) Orientation: 0-Oriented Tacttile Disturbances: 1-Very Mild Itch/Numbness Auditory Disturbances: 0-None Visual Disturbances: 0-None Headache: 0-None Present CIWA-Ar Total Score: 13 BHS COWS - Scale Resting Pulse: 0= [place] 80 or Below Sweatin= Chills/Flushing Restless Observation: 1= Difficult to Sit Still Pupil Size: 0= Normal to Room Light Bone or Joint Aches: 2= Severe Diffuse Aches Runny Nose/ Eye Tearin= None GI Upset > 30mins: 2= Nausea/Diarrhea Tremor Observation of Outstretched Hands: 0= None Yawning Observation: 1= 1-2x During Session Anxiety or Irritability: 2=Irritable/Anxious Goose Flesh Skin: 3=Piloerection (and Chills.) COWS Score: 12
[2018-12-31] MEDS ORDERED: METHADONE (DETOX) 10 MG, METHADONE (DETOX) 5 MG PO ONE (10:00)
[2019-01-01] MEDS ORDERED: METHADONE HCL 10 MG TABLET (FOR DETOX USE ONLY) PO ONE (10:00)
[2019-01-02] MEDS ORDERED: METHADONE HCL 5 MG TABLET (FOR DETOX USE ONLY) PO ONE (06:00)
== END 2018-12-30 11:28 | disposition left against medical advice (07) | DRG 770 ==
LOC: YASAS 12:24 → Y3N 19:10
PROVIDERS: ADMIT Surgery; ATTEND Surgery
PROC: HZ2ZZZZ Detoxification Services for Substance Abuse Treatment (ICD-10-PCS; principal; 2018-12-28)
DX: F11.23 Opioid dependence with withdrawal (principal); F13.230 Sedative, hypnotic or anxiolytic dependence with withdrawal, uncomplicated; F14.20 Cocaine dependence, uncomplicated; F12.20 Cannabis dependence, uncomplicated; F17.210 Nicotine dependence, cigarettes, uncomplicated; Z86.69 Personal history of other diseases of the nervous system and sense organs
CPT/HCPCS: 36415; 80053; 85027; 86593

== ENCOUNTER 2021-11-04 17:52 | Inpatient (IN) | payer OTHER ==
[2021-11-04 20:33] VITALS: BMI 21.9
[2021-11-04] MEDS ORDERED: BENZOCAINE/MENTHOL (CHLORASEPTIC ) LOZENGE MM PRN (22:22)
[2021-11-04] MEDS ORDERED: guaiFENesin 200 MG/10 ML 10 ML UNIT-DOSE CUPS PO PRN (22:22)
[2021-11-04] MEDS ORDERED: NICOTINE POLACRILEX 2 MG GUM BUC PRN (22:22)
[2021-11-04] MEDS ORDERED: IBUPROFEN 400 MG TABLET (FP) PO PRN (22:22)
[2021-11-04] MEDS ORDERED: BISMUTH SUBSALICYLATE 524 MG/30 ML PO PRN (22:22)
[2021-11-04] MEDS ORDERED: LOPERAMIDE HCL 2 MG CAPSULE PO PRN (22:22)
[2021-11-04] MEDS ORDERED: MAGNESIUM HYDROX 2400MG/30ML ORAL SUSPENSION 30 ML CUP PO PRN (22:22)
[2021-11-04] MEDS ORDERED: DICYCLOMINE HCL 10 MG CAPSULE PO PRN (22:22)
[2021-11-04] MEDS ORDERED: NALOXONE HCL 0.4 MG/ML VIAL IM PRN (22:22)
[2021-11-04] MEDS ORDERED: P-EPHED 60MG/TRIPROLIDI 2.5MG TABLET PO PRN (22:22)
[2021-11-04] MEDS ORDERED: MAG HYDROX/AL HYDROX/SIMETH 30 ML UNIT-DOSE CUP PO PRN (22:22)
[2021-11-04] MEDS ORDERED: NALOXONE HCL (KLOXXADO) 8 MG SPRAY NS PRN (22:22)
[2021-11-04] MEDS ORDERED: MAGNESIUM CITRATE 300 ML BOTTLE PO PRN (22:22)
[2021-11-04] MEDS ORDERED: ACETAMINOPHEN 325 MG TABLET (FP) PO PRN ×2 (22:22)
[2021-11-04] MEDS ORDERED: ONDANSETRON *ODT* 4 MG TABLET SL PRN (22:22)
[2021-11-05 11:54] LABS: HEMATOCRIT 39.2 % (35.4-49); HEMOGLOBIN 13.5 GM/dL (11.7-16.9); MCH 31.4 pg (25.7-33.7); MCHC 34.5 g/dl (32.0-35.9); MEAN CELL VOLUME 91.1 fl (80-96); MEAN PLT VOLUME 9.3 fl (7.5-11.1); PLATELET COUNT 197 10^3/uL (134-434); RDW 13.5 % (11.9-15.9); WHITE BLOOD COUNT 6.1 K/mm3 (4.0-10.0)
[2021-11-05 12:23] LABS: ALBUMIN 3.6 g/dl (3.4-5.0)
[2021-11-05 12:24] LABS: BILIRUBIN,TOTAL 0.8 mg/dL (0.2-1); BLOOD UREA NITROGEN 8.5 mg/dL (7-18); CALCIUM 9.3 mg/dL (8.5-10.1); TOT PROT 6.9 g/dl (6.4-8.2)
[2021-11-05 12:26] LABS: CREATININE 0.8 mg/dL (0.55-1.3)
[2021-11-05] MEDS ORDERED: cloNIDine HCL 0.1 MG TABLET PO ONE (13:08)
[2021-11-05] MEDS ORDERED: BUPRENORPHINE HCL 150 MCG, BUPRENORPHINE HCL 75 MCG BC ONE (13:08)
[2021-11-05] MEDS ORDERED: diazePAM 5 MG TABLET PO PRN (13:08)
[2021-11-05] MEDS ORDERED: BUPRENORPHINE HCL 150 MCG, BUPRENORPHINE HCL 75 MCG BC PRN (13:08)
[2021-11-05] MEDS: PRENATAL VITAMINS W/ FOLIC ACID TABLET (FP) PO SCH (14:16)
[2021-11-05] MEDS: NICOTINE 21 MG/24 HOURS TOPICAL PATCH TD SCH (14:31)
[2021-11-05] MEDS ORDERED: cloNIDine HCL 0.1 MG TABLET PO PRN (17:08)
[2021-11-05] MEDS: MELATONIN 5 MG TABLETS PO SCH (22:49)
[2021-11-05] MEDS: THIAMINE HCL 100 MG TABLET (FP) PO SCH (22:49)
[2021-11-06] MEDS ORDERED: BUPRENORPHINE HCL 150 MCG, BUPRENORPHINE HCL 75 MCG BC PRN
[2021-11-06 01:30] LABS: HIV INTERPRETATION NEGATIVE (NEGATIVE)
[2021-11-06] MEDS ORDERED: BUPRENORPHINE HCL 150 MCG, BUPRENORPHINE HCL 75 MCG BC SCH (06:00)
[2021-11-06] MEDS: METHOCARBAMOL 500 MG TABLET PO PRN ×2 (06:23→19:47)
[2021-11-06] MEDS: NICOTINE 21 MG/24 HOURS TOPICAL PATCH TD SCH (10:16)
[2021-11-06] MEDS: PRENATAL VITAMINS W/ FOLIC ACID TABLET (FP) PO SCH (10:16)
[2021-11-06] MEDS ORDERED: methaDONE HCL 10 MG TABLET (FOR DETOX USE ONLY) PO ONE (16:45)
[2021-11-06] MEDS: MELATONIN 5 MG TABLETS PO SCH (22:25)
[2021-11-06] MEDS: THIAMINE HCL 100 MG TABLET (FP) PO SCH (22:25)
[2021-11-07] MEDS ORDERED: BUPRENORPHINE HCL 450 MCG FILM BC SCH (06:00)
[2021-11-07] MEDS: PRENATAL VITAMINS W/ FOLIC ACID TABLET (FP) PO SCH (10:37)
[2021-11-07] MEDS: NICOTINE 21 MG/24 HOURS TOPICAL PATCH TD SCH (10:37)
[2021-11-07] MEDS: hydrOXYzine PAMOATE 25 MG CAPSULE (FP) PO PRN (10:37)
[2021-11-07] MEDS: METHOCARBAMOL 500 MG TABLET PO PRN (10:37)
[2021-11-08] MEDS: THIAMINE HCL 100 MG TABLET (FP) PO SCH ×2 (00:11→23:42)
[2021-11-08] MEDS: MELATONIN 5 MG TABLETS PO SCH ×2 (00:11→23:41)
[2021-11-08] MEDS: IBUPROFEN 600 MG TABLET (FP) PO PRN ×2 (02:17→13:01)
[2021-11-08] MEDS ORDERED: BUPRENORPHINE/NALOXONE 4 MG/1 MG FILM PACKET SL SCH (06:00)
[2021-11-08] MEDS ORDERED: methaDONE HCL 10 MG TABLET PO SCH (06:00)
[2021-11-08] MEDS ORDERED: methaDONE HCL 10 MG TABLET (FOR DETOX USE ONLY) PO ONE (10:00)
[2021-11-08] MEDS ORDERED: LIDOCAINE VISCOUS 2% ORAL/TOP 15 ML UNIT-DOSE CUP MM PRN (10:15)
[2021-11-08] MEDS: NICOTINE 21 MG/24 HOURS TOPICAL PATCH TD SCH (10:21)
[2021-11-08] MEDS: PRENATAL VITAMINS W/ FOLIC ACID TABLET (FP) PO SCH (10:21)
[2021-11-08] MEDS: hydrOXYzine PAMOATE 25 MG CAPSULE (FP) PO PRN (12:30)
[2021-11-09] MEDS ORDERED: methaDONE HCL 10 MG TABLET PO SCH (06:00)
[2021-11-09] MEDS ORDERED: BUPRENORPHINE/NALOXONE 8 MG/2 MG FILM PACKET SL ONE (06:00)
[2021-11-09 06:08] VITALS: BP 143/89; PULSE 60; RESP 17; TEMP 96
[2021-11-09] MEDS: NICOTINE 21 MG/24 HOURS TOPICAL PATCH TD SCH (10:11)
[2021-11-09] MEDS: PRENATAL VITAMINS W/ FOLIC ACID TABLET (FP) PO SCH (10:11)
[2021-11-16] MEDS ORDERED: methaDONE HCL 10 MG TABLET PO SCH (06:00)
== END 2021-11-09 10:20 | disposition home or self-care (01) | DRG 773 ==
LOC: YASAS 17:52 → Y6N 11-05 13:13
PROVIDERS: ADMIT Allergy & Immunology; ATTEND Surgery
PROC: HZ2ZZZZ Detoxification Services for Substance Abuse Treatment (ICD-10-PCS; principal; 2021-11-05)
DX: F11.23 Opioid dependence with withdrawal (principal); F14.20 Cocaine dependence, uncomplicated; F12.20 Cannabis dependence, uncomplicated; F17.210 Nicotine dependence, cigarettes, uncomplicated; F41.0 Panic disorder [episodic paroxysmal anxiety]; R63.4 Abnormal weight loss; Z68.22 Body mass index [BMI] 22.0-22.9, adult; I69.859 Hemiplegia and hemiparesis following other cerebrovascular disease affecting unspecified side; Z86.69 Personal history of other diseases of the nervous system and sense organs
CPT/HCPCS: 36415; 80053; 85027; 86780; 87389; 87811; C9803-CS; J0735; U0003; U0005

== ENCOUNTER 2021-11-21 08:23 | Inpatient (IN) | payer OTHER ==
[2021-11-20 21:21] VITALS: BMI 23.0
[~2021-11-21 08:23] MED LIST: ACETAMINOPHEN 325 MG TABLET (FP) PO PRN; BENZOCAINE/MENTHOL (CHLORASEPTIC ) LOZENGE MM PRN; BISMUTH SUBSALICYLATE 524 MG/30 ML PO PRN; DICYCLOMINE HCL 10 MG CAPSULE PO PRN; IBUPROFEN 400 MG TABLET (FP) PO PRN; IBUPROFEN 600 MG TABLET (FP) PO PRN; LOPERAMIDE HCL 2 MG CAPSULE PO PRN; MAG HYDROX/AL HYDROX/SIMETH 30 ML UNIT-DOSE CUP PO PRN; MAGNESIUM CITRATE 300 ML BOTTLE PO PRN; MAGNESIUM HYDROX 2400MG/30ML ORAL SUSPENSION 30 ML CUP PO PRN; MELATONIN 5 MG TABLETS PO SCH; METHOCARBAMOL 500 MG TABLET PO PRN; NALOXONE HCL (KLOXXADO) 8 MG SPRAY NS PRN; NALOXONE HCL 0.4 MG/ML VIAL IM PRN; NICOTINE POLACRILEX 2 MG GUM BUC PRN; ONDANSETRON *ODT* 4 MG TABLET SL PRN; P-EPHED 60MG/TRIPROLIDI 2.5MG TABLET PO PRN; guaiFENesin 200 MG/10 ML 10 ML UNIT-DOSE CUPS PO PRN; hydrOXYzine PAMOATE 25 MG CAPSULE (FP) PO PRN
[2021-11-21] MEDS ORDERED: methaDONE HCL 10 MG TABLET (FOR DETOX USE ONLY) PO ONE (10:21)
[2021-11-21] MEDS ORDERED: cloNIDine HCL 0.1 MG TABLET PO PRN (10:21)
[2021-11-21] MEDS ORDERED: methaDONE HCL 10 MG TABLET (FOR DETOX USE ONLY) ONE (11:23)
[2021-11-21] MEDS: NICOTINE 21 MG/24 HOURS TOPICAL PATCH TD SCH (13:44)
[2021-11-21] MEDS: PRENATAL VITAMINS W/ FOLIC ACID TABLET (FP) PO SCH (13:44)
[2021-11-21] MEDS: THIAMINE HCL 100 MG TABLET (FP) PO SCH ×2 (13:44→21:44)
[2021-11-21 14:19] LABS: HEMATOCRIT 37.8 % (35.4-49); MCH 31.2 pg (25.7-33.7); MCHC 34.4 g/dl (32.0-35.9); MEAN CELL VOLUME 90.8 fl (80-96); MEAN PLT VOLUME 9.6 fl (7.5-11.1); PLATELET COUNT 226 10^3/uL (134-434); RBC 4.16 M/mm3 (4.00-5.60); RDW 13.3 % (11.9-15.9); WHITE BLOOD COUNT 6.6 K/mm3 (4.0-10.0)
[2021-11-21 14:24] LABS: CALCIUM 8.6 mg/dL (8.5-10.1)
[2021-11-21 14:25] LABS: ALBUMIN 3.3 g/dl (3.4-5.0); BLOOD UREA NITROGEN 9.7 mg/dL (7-18)
[2021-11-21 14:28] LABS: CREATININE 0.8 mg/dL (0.55-1.3)
[2021-11-21 14:30] LABS: TOT PROT 6.6 g/dl (6.4-8.2)
[2021-11-21 14:31] LABS: BILIRUBIN,TOTAL 0.8 mg/dL (0.2-1)
[2021-11-21] MEDS: MELATONIN 5 MG TABLETS PO SCH (21:44)
[2021-11-22] MEDS: NICOTINE 21 MG/24 HOURS TOPICAL PATCH TD SCH (10:23)
[2021-11-22] MEDS: PRENATAL VITAMINS W/ FOLIC ACID TABLET (FP) PO SCH (10:23)
[2021-11-22] MEDS: NICOTINE 10 MG CARTRIDGE (INHALER) IH PRN (12:33)
[2021-11-22] MEDS: THIAMINE HCL 100 MG TABLET (FP) PO SCH (22:30)
[2021-11-22] MEDS: MELATONIN 5 MG TABLETS PO SCH (22:30)
[2021-11-23] MEDS ORDERED: methaDONE HCL 10 MG TABLET (FOR DETOX USE ONLY) PO ONE (10:00)
[2021-11-23] MEDS: PRENATAL VITAMINS W/ FOLIC ACID TABLET (FP) PO SCH (10:11)
[2021-11-23] MEDS: NICOTINE 21 MG/24 HOURS TOPICAL PATCH TD SCH (10:11)
[2021-11-23] MEDS: diazePAM 5 MG TABLET PO PRN ×2 (10:12→20:49)
[2021-11-23] MEDS: NICOTINE 10 MG CARTRIDGE (INHALER) IH PRN (16:38)
[2021-11-23] MEDS: THIAMINE HCL 100 MG TABLET (FP) PO SCH (22:11)
[2021-11-23] MEDS: MELATONIN 5 MG TABLETS PO SCH (22:12)
[2021-11-24] MEDS: diazePAM 5 MG TABLET PO PRN (10:02)
[2021-11-24] MEDS: PRENATAL VITAMINS W/ FOLIC ACID TABLET (FP) PO SCH (10:02)
[2021-11-24] MEDS: NICOTINE 21 MG/24 HOURS TOPICAL PATCH TD SCH (10:04)
[2021-11-24] MEDS: THIAMINE HCL 100 MG TABLET (FP) PO SCH (23:58)
[2021-11-24] MEDS: MELATONIN 5 MG TABLETS PO SCH (23:58)
[2021-11-25] MEDS ORDERED: methaDONE HCL 10 MG TABLET (FOR DETOX USE ONLY) PO ONE (10:00)
[2021-11-25] MEDS: NICOTINE 21 MG/24 HOURS TOPICAL PATCH TD SCH (10:23)
[2021-11-25] MEDS: PRENATAL VITAMINS W/ FOLIC ACID TABLET (FP) PO SCH (10:23)
[2021-11-25] MEDS: THIAMINE HCL 100 MG TABLET (FP) PO SCH (22:42)
[2021-11-25] MEDS: MELATONIN 5 MG TABLETS PO SCH (22:42)
[2021-11-26 09:25] VITALS: RESP 18; TEMP 97.7
[2021-11-26] MEDS: NICOTINE 21 MG/24 HOURS TOPICAL PATCH TD SCH (11:06)
[2021-11-26] MEDS: PRENATAL VITAMINS W/ FOLIC ACID TABLET (FP) PO SCH (11:06)
[2021-11-26 13:20] VITALS: BP 148/76; PULSE 110
== END 2021-11-26 13:43 | disposition home or self-care (01) | DRG 773 ==
LOC: YASAS 08:23 → Y3N 11:49
PROVIDERS: ADMIT Allergy & Immunology; ATTEND Surgery
PROC: HZ2ZZZZ Detoxification Services for Substance Abuse Treatment (ICD-10-PCS; principal; 2021-11-21)
DX: F11.23 Opioid dependence with withdrawal (principal); F14.20 Cocaine dependence, uncomplicated; F12.20 Cannabis dependence, uncomplicated; F17.210 Nicotine dependence, cigarettes, uncomplicated; F41.9 Anxiety disorder, unspecified; F32.A Depression, unspecified; F19.24 Other psychoactive substance dependence with psychoactive substance-induced mood disorder; F19.282 Other psychoactive substance dependence with psychoactive substance-induced sleep disorder; F19.280 Other psychoactive substance dependence with psychoactive substance-induced anxiety disorder; R73.9 Hyperglycemia, unspecified; Z28.310 Unvaccinated for COVID-19; Z86.69 Personal history of other diseases of the nervous system and sense organs; Z86.73 Personal history of transient ischemic attack (TIA), and cerebral infarction without residual deficits; Z91.51 Personal history of suicidal behavior; Z56.0 Unemployment, unspecified; Z59.02 Unsheltered homelessness
CPT/HCPCS: 36415; 80053; 82947; 83036; 85027; 86780; C9803-CS; U0003; U0005

== ENCOUNTER 2022-01-28 11:48 | Inpatient (IN) | payer OTHER ==
[2022-01-28 12:48] VITALS: BMI 25.6
[2022-01-28] MEDS ORDERED: IBUPROFEN 600 MG TABLET (FP) PO PRN (14:56)
[2022-01-28] MEDS ORDERED: DICYCLOMINE HCL 10 MG CAPSULE PO PRN (14:56)
[2022-01-28] MEDS ORDERED: ACETAMINOPHEN 325 MG TABLET (FP) PO PRN ×2 (14:56)
[2022-01-28] MEDS ORDERED: MAGNESIUM CITRATE 300 ML BOTTLE PO PRN (14:56)
[2022-01-28] MEDS ORDERED: BISMUTH SUBSALICYLATE 524 MG/30 ML PO PRN (14:56)
[2022-01-28] MEDS ORDERED: NALOXONE HCL (KLOXXADO) 8 MG SPRAY NS PRN (14:56)
[2022-01-28] MEDS ORDERED: IBUPROFEN 400 MG TABLET (FP) PO PRN (14:56)
[2022-01-28] MEDS ORDERED: MAG HYDROX/AL HYDROX/SIMETH 30 ML UNIT-DOSE CUP PO PRN (14:56)
[2022-01-28] MEDS ORDERED: MAGNESIUM HYDROX 2400MG/30ML ORAL SUSPENSION 30 ML CUP PO PRN (14:56)
[2022-01-28] MEDS ORDERED: BENZOCAINE/MENTHOL (CHLORASEPTIC ) LOZENGE MM PRN (14:56)
[2022-01-28] MEDS ORDERED: ONDANSETRON *ODT* 4 MG TABLET SL PRN (14:56)
[2022-01-28] MEDS ORDERED: METHOCARBAMOL 500 MG TABLET PO PRN (14:56)
[2022-01-28] MEDS ORDERED: LOPERAMIDE HCL 2 MG CAPSULE PO PRN (14:56)
[2022-01-28] MEDS ORDERED: hydrOXYzine PAMOATE 25 MG CAPSULE (FP) PO PRN (14:56)
[2022-01-28] MEDS: NICOTINE 14 MG/24 HOURS TOPICAL PATCH TD SCH (17:31)
[2022-01-28] MEDS: PRENATAL VITAMINS W/ FOLIC ACID TABLET (FP) PO SCH (17:31)
[2022-01-28] MEDS: NICOTINE 10 MG CARTRIDGE (INHALER) IH PRN ×2 (18:13→22:33)
[2022-01-28] MEDS ORDERED: chlordiazePOXIDE HCL 25 MG CAPSULE PO PRN (21:33)
[2022-01-28] MEDS ORDERED: chlordiazePOXIDE HCL 25 MG CAPSULE PO ONE (21:33)
[2022-01-28] MEDS: chlordiazePOXIDE HCL 25 MG CAPSULE PO SCH (22:30)
[2022-01-28] MEDS: MELATONIN 5 MG TABLETS PO SCH (22:30)
[2022-01-28] MEDS: THIAMINE HCL 100 MG TABLET (FP) PO SCH (22:31)
[2022-01-29] MEDS: chlordiazePOXIDE HCL 25 MG CAPSULE PO SCH ×4 (06:10→22:25)
[2022-01-29] MEDS: PRENATAL VITAMINS W/ FOLIC ACID TABLET (FP) PO SCH (10:14)
[2022-01-29] MEDS: NICOTINE 14 MG/24 HOURS TOPICAL PATCH TD SCH (10:15)
[2022-01-29 11:59] LABS: HEMATOCRIT 40.4 % (35.4-49); HEMOGLOBIN 13.5 GM/dL (11.7-16.9); MCH 30.1 pg (25.7-33.7); MCHC 33.4 g/dl (32.0-35.9); MEAN CELL VOLUME 90.1 fl (80-96); MEAN PLT VOLUME 9.5 fl (7.5-11.1); PLATELET COUNT 194 10^3/uL (134-434); RBC 4.48 M/mm3 (4.00-5.60); RDW 13.6 % (11.9-15.9); WHITE BLOOD COUNT 5.2 K/mm3 (4.0-10.0)
[2022-01-29 12:04] LABS: ALBUMIN 3.7 g/dl (3.4-5.0); BLOOD UREA NITROGEN 10.1 mg/dL (7-18); CALCIUM 9.3 mg/dL (8.5-10.1)
[2022-01-29 12:07] LABS: CREATININE 0.8 mg/dL (0.55-1.3)
[2022-01-29 12:09] LABS: BILIRUBIN,TOTAL 0.4 mg/dL (0.2-1); TOT PROT 6.9 g/dl (6.4-8.2)
[2022-01-29] MEDS: BUPRENORPHINE HCL 8 MG TAB.SUBL SL SCH ×2 (14:45→22:25)
[2022-01-29] MEDS: NICOTINE 10 MG CARTRIDGE (INHALER) IH PRN (20:32)
[2022-01-29] MEDS ORDERED: MIRTAZAPINE 15 MG TABLET (FP) ONE (21:50)
[2022-01-29] MEDS: MELATONIN 5 MG TABLETS PO SCH (22:24)
[2022-01-29] MEDS: MIRTAZAPINE 30 MG TABLET PO SCH (22:24)
[2022-01-29] MEDS: THIAMINE HCL 100 MG TABLET (FP) PO SCH (22:25)
[2022-01-30] MEDS: chlordiazePOXIDE HCL 25 MG CAPSULE PO SCH ×4 (05:22→22:08)
[2022-01-30] MEDS: NICOTINE 14 MG/24 HOURS TOPICAL PATCH TD SCH (10:56)
[2022-01-30] MEDS: BUPRENORPHINE HCL 8 MG TAB.SUBL SL SCH ×2 (10:56→22:09)
[2022-01-30] MEDS: PRENATAL VITAMINS W/ FOLIC ACID TABLET (FP) PO SCH (10:56)
[2022-01-30] MEDS: NICOTINE 10 MG CARTRIDGE (INHALER) IH PRN (13:20)
[2022-01-30] MEDS ORDERED: MIRTAZAPINE 15 MG TABLET (FP) ONE (20:26)
[2022-01-30] MEDS: THIAMINE HCL 100 MG TABLET (FP) PO SCH (22:07)
[2022-01-30] MEDS: MELATONIN 5 MG TABLETS PO SCH (22:07)
[2022-01-30] MEDS: MIRTAZAPINE 30 MG TABLET PO SCH (22:08)
[2022-01-31] MEDS ORDERED: chlordiazePOXIDE HCL 10 MG CAPSULE PO PRN
[2022-01-31] MEDS: chlordiazePOXIDE HCL 10 MG CAPSULE PO SCH ×4 (05:20→22:17)
[2022-01-31] MEDS: BUPRENORPHINE HCL 8 MG TAB.SUBL SL SCH ×2 (10:18→22:14)
[2022-01-31] MEDS: PRENATAL VITAMINS W/ FOLIC ACID TABLET (FP) PO SCH (10:18)
[2022-01-31] MEDS: NICOTINE 14 MG/24 HOURS TOPICAL PATCH TD SCH (10:19)
[2022-01-31] MEDS: NICOTINE 10 MG CARTRIDGE (INHALER) IH PRN (18:00)
[2022-01-31] MEDS ORDERED: MIRTAZAPINE 15 MG TABLET (FP) ONE (21:18)
[2022-01-31] MEDS: MELATONIN 5 MG TABLETS PO SCH (22:14)
[2022-01-31] MEDS: THIAMINE HCL 100 MG TABLET (FP) PO SCH (22:15)
[2022-01-31] MEDS: MIRTAZAPINE 30 MG TABLET PO SCH (22:15)
[2022-02-01] MEDS ORDERED: chlordiazePOXIDE HCL 10 MG CAPSULE PO SCH (05:00)
[2022-02-01 09:02] VITALS: BP 98/56; PULSE 73; RESP 16; TEMP 973
[2022-02-01] MEDS: PRENATAL VITAMINS W/ FOLIC ACID TABLET (FP) PO SCH (10:05)
[2022-02-01] MEDS: BUPRENORPHINE HCL 8 MG TAB.SUBL SL SCH (10:05)
[2022-02-01] MEDS: NICOTINE 14 MG/24 HOURS TOPICAL PATCH TD SCH (10:05)
[2022-02-02] MEDS ORDERED: chlordiazePOXIDE HCL 10 MG CAPSULE PO ONE (05:00)
== END 2022-02-01 11:04 | disposition home or self-care (01) | DRG 773 ==
LOC: YASAS 11:48 → Y3N 16:47
PROVIDERS: ADMIT Allergy & Immunology; ATTEND Surgery
PROC: HZ2ZZZZ Detoxification Services for Substance Abuse Treatment (ICD-10-PCS; principal; 2022-01-28)
DX: F11.23 Opioid dependence with withdrawal (principal); F10.230 Alcohol dependence with withdrawal, uncomplicated; F14.20 Cocaine dependence, uncomplicated; F12.20 Cannabis dependence, uncomplicated; F17.210 Nicotine dependence, cigarettes, uncomplicated; F41.9 Anxiety disorder, unspecified; F32.A Depression, unspecified; F19.24 Other psychoactive substance dependence with psychoactive substance-induced mood disorder; G40.909 Epilepsy, unspecified, not intractable, without status epilepticus; I69.854 Hemiplegia and hemiparesis following other cerebrovascular disease affecting left non-dominant side
CPT/HCPCS: 36415; 80053; 85027; 86780; C9803-CS; U0003; U0005

== ENCOUNTER 2022-11-09 19:24 | Inpatient (IN) | payer OTHER ==
[2022-11-09 22:03] VITALS: BMI 25.0
[2022-11-09] MEDS ORDERED: ACETAMINOPHEN 325 MG TABLET (FP) PO PRN (23:54)
[2022-11-09] MEDS ORDERED: MAG HYDROX/AL HYDROX/SIMETH 30 ML UNIT-DOSE CUP PO PRN (23:54)
[2022-11-09] MEDS ORDERED: DICYCLOMINE HCL 10 MG CAPSULE PO PRN (23:54)
[2022-11-09] MEDS ORDERED: NALOXONE HCL (KLOXXADO) 8 MG SPRAY NS PRN (23:54)
[2022-11-09] MEDS ORDERED: POLYETHYLENE GLYCOL (HEALTHYLAX) 3350 17 GM PACKET PO PRN (23:54)
[2022-11-09] MEDS ORDERED: P-EPHED 60MG/TRIPROLIDI 2.5MG TABLET PO PRN (23:54)
[2022-11-09] MEDS ORDERED: hydrOXYzine PAMOATE 25 MG CAPSULE (FP) PO PRN (23:54)
[2022-11-09] MEDS ORDERED: guaiFENesin 600 MG TABLET.ER (FP) PO PRN (23:54)
[2022-11-09] MEDS ORDERED: BISMUTH SUBSALICYLATE 524 MG/30 ML PO PRN (23:54)
[2022-11-09] MEDS ORDERED: METHOCARBAMOL 500 MG TABLET PO PRN (23:54)
[2022-11-09] MEDS ORDERED: BENZONATATE 200 MG CAPSULE PO PRN (23:54)
[2022-11-09] MEDS ORDERED: LOPERAMIDE HCL 2 MG CAPSULE PO PRN (23:54)
[2022-11-09] MEDS ORDERED: BENZOCAINE/MENTHOL (CHLORASEPTIC ) LOZENGE MM PRN (23:54)
[2022-11-09] MEDS ORDERED: IBUPROFEN 400 MG TABLET (FP) PO PRN (23:54)
[2022-11-09] MEDS ORDERED: NALOXONE HCL 0.4 MG/ML VIAL IM PRN (23:54)
[2022-11-09] MEDS ORDERED: MAGNESIUM HYDROX 2400MG/30ML ORAL SUSPENSION 30 ML CUP PO PRN (23:54)
[2022-11-09] MEDS ORDERED: ONDANSETRON *ODT* 4 MG TABLET SL PRN (23:54)
[2022-11-10] MEDS ORDERED: diazePAM 5 MG TABLET PO PRN (10:23)
[2022-11-10] MEDS: PRENATAL VITAMINS W/ FOLIC ACID TABLET (FP) PO SCH (10:33)
[2022-11-10] MEDS: diazePAM 5 MG TABLET PO SCH ×3 (10:52→22:10)
[2022-11-10 11:37] LABS: POTASSIUM 4.1 mmol/L (3.5-5.1)
[2022-11-10 11:40] LABS: HEMATOCRIT 40.8 % (35.4-49); HEMOGLOBIN 13.9 GM/dL (11.7-16.9); MCH 30.6 pg (25.7-33.7); MCHC 34.2 g/dl (32.0-35.9); MEAN CELL VOLUME 89.7 fl (80-96); MEAN PLT VOLUME 9.5 fl (7.5-11.1); PLATELET COUNT 205 10^3/uL (134-434); RBC 4.55 M/mm3 (4.00-5.60); RDW 12.8 % (11.9-15.9); WHITE BLOOD COUNT 6.7 K/mm3 (4.0-10.0)
[2022-11-10 12:08] LABS: ALBUMIN 3.6 g/dl (3.4-5.0); CALCIUM 9.2 mg/dL (8.5-10.1)
[2022-11-10 12:11] LABS: CREATININE 0.8 mg/dL (0.55-1.3)
[2022-11-10 12:12] LABS: TOT PROT 7.2 g/dl (6.4-8.2)
[2022-11-10 12:13] LABS: BILIRUBIN,TOTAL 0.9 mg/dL (0.2-1)
[2022-11-10] MEDS: THIAMINE HCL 100 MG TABLET (FP) PO SCH (22:10)
[2022-11-10] MEDS: BUPRENORPHINE HCL 2 MG TAB.SUBL SL SCH (22:11)
[2022-11-10] MEDS: MELATONIN 5 MG TABLETS PO SCH (23:47)
[2022-11-11] MEDS: diazePAM 5 MG TABLET PO SCH ×4 (05:28→22:34)
[2022-11-11] MEDS: BUPRENORPHINE HCL 2 MG TAB.SUBL SL SCH ×2 (10:19→22:36)
[2022-11-11] MEDS: PRENATAL VITAMINS W/ FOLIC ACID TABLET (FP) PO SCH (10:21)
[2022-11-11] MEDS: THIAMINE HCL 100 MG TABLET (FP) PO SCH (22:34)
[2022-11-11] MEDS: MELATONIN 5 MG TABLETS PO SCH (22:35)
[2022-11-12] MEDS: diazePAM 5 MG TABLET PO SCH ×3 (05:17→23:24)
[2022-11-12] MEDS: PRENATAL VITAMINS W/ FOLIC ACID TABLET (FP) PO SCH (10:31)
[2022-11-12] MEDS: BUPRENORPHINE HCL 2 MG TAB.SUBL SL SCH ×2 (12:19→23:24)
[2022-11-12] MEDS: MELATONIN 5 MG TABLETS PO SCH (23:24)
[2022-11-12] MEDS: THIAMINE HCL 100 MG TABLET (FP) PO SCH (23:24)
[2022-11-13] MEDS: diazePAM 5 MG TABLET PO SCH ×2 (05:30→20:30)
[2022-11-13] MEDS: IBUPROFEN 600 MG TABLET (FP) PO PRN (08:56)
[2022-11-13] MEDS: PRENATAL VITAMINS W/ FOLIC ACID TABLET (FP) PO SCH (10:16)
[2022-11-13] MEDS: BUPRENORPHINE HCL 2 MG TAB.SUBL SL SCH ×2 (10:16→22:29)
[2022-11-13] MEDS: MELATONIN 5 MG TABLETS PO SCH (22:29)
[2022-11-13] MEDS: THIAMINE HCL 100 MG TABLET (FP) PO SCH (22:29)
[2022-11-14] MEDS ORDERED: diazePAM 5 MG TABLET PO ONE (06:00)
[2022-11-14 06:11] VITALS: RESP 18
[2022-11-14] MEDS: IBUPROFEN 600 MG TABLET (FP) PO PRN (07:44)
[2022-11-14] MEDS: BUPRENORPHINE HCL 2 MG TAB.SUBL SL SCH (09:24)
[2022-11-14] MEDS: PRENATAL VITAMINS W/ FOLIC ACID TABLET (FP) PO SCH (09:24)
[2022-11-14 10:52] VITALS: BP 137/90; PULSE 79; TEMP 98
== END 2022-11-14 12:50 | disposition home or self-care (01) | DRG 773 ==
LOC: YASAS 19:24 → Y6N 11-10 01:56
PROVIDERS: ADMIT Allergy & Immunology; ATTEND Surgery
PROC: HZ2ZZZZ Detoxification Services for Substance Abuse Treatment (ICD-10-PCS; principal; 2022-11-10)
DX: F10.230 Alcohol dependence with withdrawal, uncomplicated (principal); F11.20 Opioid dependence, uncomplicated; F32.A Depression, unspecified; B18.2 Chronic viral hepatitis C; Z87.891 Personal history of nicotine dependence; Z51.81 Encounter for therapeutic drug level monitoring; Z28.310 Unvaccinated for COVID-19; Z28.9 Immunization not carried out for unspecified reason; Z56.0 Unemployment, unspecified; Z59.00 Homelessness unspecified
CPT/HCPCS: 36415; 80053; 85027; 86780; 87635; 87811